=== PATIENT | female | born 1955 | race Caucasian/White ===

== ENCOUNTER 2017-01-24 12:02 | Observation (INO) | payer BC ==
--- NOTE | ~2017-01-24 | HEMODYNAMI ---
PATIENT:DEBBIE HOOKER MEDICAL RECORD: [id number] : 51 LOCATION:[facility] [place] ADMISSION DATE: 01/24/17 Generatedon:01/25/201715:39 Patient name: DEBBIE HOOKER Patient #: [id number] SSN: : 1955 Date of study: 01/25/2017 Page: Of Hemodynamic Procedure Report Patient Data Patient Demographics Procedure consent was obtained First Name: DEBBIE Gender: Female Last Name: MORRO : 1955 [facility] Initial: GABBI Age: 61 year(s) Patient #: [id number] Race: Unknown Additional ID: [id number] Contact details Address: [address] [place] [address] State: [place] City: [place] Zip code: [address] Admission Admission Data Admission Date: 01/24/2017 Admission Time: 14:36 Room #: [facility] Procedure Procedure Types Cath Procedure Diagnostic Procedure LHC LH w/Coronaries PCI Procedure Coronary Stent Initial Miscellaneous Procedures Moderate Sedation up to 45 minutes Procedure Description Procedure Date Procedure Date: 01/25/2017 Procedure Start Time: 15:16 Procedure End Time: 15:38 Procedure Staff Name Function Michi To MD Performing Physician Lupis Morrison RT Scrub Michael Burden RN Nurse Aamir Baeza RT Monitor Sabino Vanegas RT Textile Engraver Procedure Data Cath Procedure Fluoroscopy Diagnostic fluoroscopy Total fluoroscopy Time: 2.9 time: 2.9 min min Diagnostic fluoroscopy Total fluoroscopy dose: 686 dose: 686 mGy mGy Contrast Material Contrast Material Type Amount (ml) Isovue 300 108 Entry Location Entry Primary Successful Side Size Upsize Upsize Entry Closure Succes sful Closure Location (Fr) 1 (Fr) 2 (Fr) Remarks Device Remarks Femoral Right 5 Fr 6 Fr Exoseal artery Short Estimated blood loss: 10 ml Diagnostic catheters Device Type Used For End Catheter Placement Cordis 5Fr JL 4.0 Procedure Catheter (MP) Cordis 5Fr 3DRC Catheter Procedure (MP) Cordis 5Fr Pigtail Procedure Catheter (MP) Procedure Complications No complications Procedure Medications Medication Administration Route Dosage Oxygen NC 2 l/min Heparin Flush Bag added to field 2 bags (1000units/500ml NS) 0.9% NaCl I.V. 100 ml/hr Fentanyl I.V. 50 mcg Versed I.V. 1 mg Fentanyl I.V. 50 mcg Versed I.V. 1 mg Fentanyl I.V. 50 mcg Versed I.V. 1 mg Fentanyl I.V. 50 mcg Versed I.V. 1 mg Fentanyl I.V. 50 mcg Versed I.V. 1 mg Fentanyl I.V. 50 mcg Versed I.V. 1 mg Fentanyl I.V. 50 mcg Versed I.V. 1 mg Heparin Bolus I.V. 9000 units Fentanyl I.V. 50 mcg Versed I.V. 1 mg Plavix P.O. 600 mg Hemodynamics Rest Heart Rate: 83 (bpm) Pressure Samples Time Site Value (mmHg) Purpose Heart Use Rate(bpm) 15:23 LV 168/-12,19 Snapshot 80 15:23 AO 167/78(116) Pullback 73 15:23 LV 160/-14,40 Pullback 73 Gradients Valve Time Site 1 Site 2 Mean SEP/DFP Peak To Heart Use (mmHg) (sec/min) Peak Rate (mmHg) (bpm) Aortic 15:23 LV AO 0 6 0 73 160/-14,40 167/78(116) Calculations Valve P-P Mean Valve Index Valve Source Name Gradient Area Flow (cm2) Aortic 0 0 0 0 Snapshots Pre Cath Intra NCS Post Cath Vital Signs Time Heart Resp SPO2 NIBP (mmHg) Rhythm Pain Sedation Rate (ipm) (%) Status Level (bpm) 15:03:15 81 19 100 152/68(102) NSR 0 (11) 10(A) , No pain 15:07:37 85 18 100 153/69(105) NSR 0 (11) 10(A) , No pain 15:11:55 83 17 100 137/66(95) NSR 0 (11) 10(A) , No pain 15:16:16 89 18 100 137/72(103) NSR 0 (11) 10(A) , No pain 15:20:32 85 19 98 140/77(102) NSR 0 (11) 10(A) , No pain 15:24:52 85 18 99 153/70(95) NSR 0 (11) 10(A) , No pain 15:29:06 88 18 99 143/70(107) NSR 0 (11) 10(A) , No pain 15:33:26 91 17 100 138/74(98) NSR 0 (11) 10(A) , No pain 15:37:44 87 18 100 152/76(111) NSR 0 (11) 10(A) , No pain Medications Time Medication Route Dose Verified Delivered Reason Notes Effectiveness by by 15:09:02 Oxygen NC 2 Michael Michael Per physician l/min Bertram Burden RN RN 15:09:11 Heparin Flush added 2 Michael Michael used for Bag to bags Bertram Burden steward/stewardess second (1000units/500ml field RN NS) 15:09:21 0.9% NaCl I.V. 100 Michael Michael Per physician ml/hr Bertram Burden RN RN 15:10:11 Fentanyl I.V. 50 Michael Michael for sedation mcg Bertram Burden RN RN 15:10:19 Versed I.V. 1 mg Michael Michael for sedation Bertram Burden RN RN 15:12:41 Fentanyl I.V. 50 Michael Michael for sedation mcg Bertram Burden RN RN 15:12:44 Versed I.V. 1 mg Michael Michael for sedation Bertram Burden RN RN 15:14:21 Fentanyl I.V. 50 Michael Michael for sedation mcg Bertram Burden RN RN 15:14:24 Versed I.V. 1 mg Michael Michael for sedation Bertram Burden RN RN 15:16:56 Fentanyl I.V. 50 Michael Michael for sedation mcg Bertram Burden RN RN 15:17:06 Versed I.V. 1 mg Michael Michael for sedation Bertram Burden RN RN 15:18:05 Fentanyl I.V. 50 Imchael Michael for sedation mcg Bertram Burden RN RN 15:18:08 Versed I.V. 1 mg Michael Michael for sedation Bertram Burden RN RN 15:22:22 Fentanyl I.V. 50 Michael Michael for sedation mcg Bertram Burden RN RN 15:23:00 Versed I.V. 1 mg Michael Michael for sedation Bertram Burden RN RN 15:28:10 Fentanyl I.V. 50 Michael Michael for sedation mcg Bertram Burden RN RN 15:28:13 Versed I.V. 1 mg Michael Michael for sedation Bertram Burden RN RN 15:28:42 Heparin Bolus I.V. 9000 Michael Michael for units Bertram Burden RN anticoagulation RN 15:30:55 Fentanyl I.V. 50 Michael Michael for sedation mcg Bertram Burden RN RN 15:30:59 Versed I.V. 1 mg Michael Michael for sedation Bertram Burden RN RN 15:38:12 Plavix P.O. 600 Michael Morochoy for mg Bertram Burden RN antiplatelet RN therapy Procedure Log Time Note 14:30:46 Sabino Vanegas RT(R) sent for patient. Start room use. 14:41:47 Time tracking: Regular hours 14:41:50 Plan of Care:Hemodynamics will remain stable., Cardiac rhythm will remain stable., Comfort level will be maintained., Respiratory function will remain adequate., Patient/ family verbilizes understanding of procedure., Procedure tolerated without complication., Recovers from procedure without complications.. 15:01:18 Patient received from PCU to CCL 2 Alert and oriented. Tansferred to table in Supine position. 15:01:19 Warm blankets applied, and mitch hugger turned on for patient comfort. 15:01:20 Correct patient and procedure confirmed by team. 15:01:21 Signed procedure consent form obtained from patient. 15:01:26 ECG and BP/O2 sat monitors applied to patient. 15:02:05 Vital chart was started 15:02:06 Baseline sample Acquired. 15:02:10 Rhythm: sinus rhythm 15:02:24 Full Disclosure recording started 15:02:53 H&P Date Dictated: 01/24/2017 Within 30 days and on chart.. 15:02:53 Pre-procedure instructions explained to patient. 15:02:54 Pre-op teaching completed and patient verbalized understanding. 15:02:56 Family in patients room. 15:02:57 Patient NPO since Midnight. 15:02:58 Is the patient allergic to Iodine/contrast media? No. 15:03:00 Is patient on blood thinner?No 15:03:08 Patient diabetic? No. 15:03:10 Previous problem with sedation/anesthesia? No ? 15:03:15 Snore? Yes 15:03:16 Sleep apnea? No 15:03:17 Deviated septum? No 15:03:18 Opens mouth fully? Yes 15:03:19 Sticks out tongue? Yes 15:03:21 Airway obstruction? Yes Asthma 15:03:24 Dentures? No ? 15:03:38 Pre procedure: right dorsailis pedis pulse 1+ Palpable, but thready & weak; easily obliterated 15:03:45 Patient pain scale 0/10 ?. 15:03:55 IV patent on arrival in left forearm with 0.9% NaCl at [facility]. 15:04:04 Lab results completed and on chart. 15:04:06 Right groin area was prepped with chlora-prep and draped in sterile fashion 15:04:07 Alarms reviewed by R. N. 15:04:07 Sharps counted by scrub and verified by R.N. 15:04:08 --------ALL STOP TIME OUT------ 15:04:09 Final Timeout: patient, procedure, and site verified with staff and physician. All members of the team are in agreement. 15:04:11 Right groin site verified by team. 15:04:14 Physical assessment completed. ASA score P 2 - A patient with mild systemic disease as per Michi To MD. 15:04:18 Sedation plan: IV Moderate Sedation Versed, Fentanyl 15:09:02 Oxygen 2 l/min NC was administered by Michael Burden RN; Per physician; 15:09:11 Heparin Flush Bag (1000units/500ml NS) 2 bags added to field was administered by Michael Burden RN; used for procedure; 15::21 0.9% NaCl 100 ml/hr I.V. was administered by Michael Burden RN; Per physician; 15::11 Fentanyl 50 mcg I.V. was administered by Michael Burden RN; for sedation; 15::19 Versed 1 mg I.V. was administered by Michael Burden RN; for sedation; 15:12:41 Fentanyl 50 mcg I.V. was administered by Michael Burden RN; for sedation; 15:12:44 Versed 1 mg I.V. was administered by Michael Burden RN; for sedation; 15:14:21 Fentanyl 50 mcg I.V. was administered by Michael Burden RN; for sedation; 15:14:24 Versed 1 mg I.V. was administered by Michael Burden RN; for sedation; 15:16:09 Use device set Femoral Dx 15:16:10 Tegaderm 4 x 4 opened to sterile field. 15:16:11 Acist Hand Control opened to sterile field. 15:16:11 Acist Manifold opened to sterile field. 15:16:12 Acist Syringe opened to sterile field. 15:16:13 Bag Decanter opened to sterile field. 15:16:13 Medline Cath Pack opened to sterile field. 15:16:13 Terumo 5Fr Alpine Sheath opened to sterile field. 15:16:14 St Camacho 260cm J .035 wire opened to sterile field. 15:16:15 Diagnostic Infinity 5Fr Multipack catheter opened to sterile field. 15:16:18 Procedure started. 15:16:21 Local anesthetic to right femoral artery with Lidocaine 2% by Michi To MD.INITIAL ACCESS ONLY 15:16:56 Fentanyl 50 mcg I.V. was administered by Michael Burden RN; for sedation; 15:17:06 Versed 1 mg I.V. was administered by Michael Burden RN; for sedation; 15:17:15 Zero performed for pressure channel P1 15:17:46 A 5 Fr sheath was inserted into the Right Femoral artery 15:18:05 Fentanyl 50 mcg I.V. was administered by Michael Burden RN; for sedation; 15:18:08 Versed 1 mg I.V. was administered by Michael Burden RN; for sedation; 15:19:10 A Cordis 5Fr JL 4.0 Catheter (MP) was advanced over the wire and used for Procedure. 15:19:17 LCA angiography performed. 15:20:31 Catheter exchanged over wire. 15:20:48 A Cordis 5Fr 3DRC Catheter (MP) was advanced over the wire and used for Procedure. 15:21:50 RCA angiography performed. 15:22:22 Fentanyl 50 mcg I.V. was administered by Michael Burden RN; for sedation; 15:22:36 Catheter exchanged over wire. 15:22:41 A Cordis 5Fr Pigtail Catheter (MP) was advanced over the wire and used for Procedure. 15:23:00 Versed 1 mg I.V. was administered by Michael Burden RN; for sedation; 15:23:34 LV angiography performed. 15::35 LV gram done using SARAVIA 15::43 EF : 55 % 15::48 LV hemodynamics recorded. 15::51 Injector settings: Ml/sec: 10, Volume: 20, 15::53 Catheter exchanged over wire. 15:24:16 Terumo 6Fr Alpine Sheath opened to sterile field. 15:24:16 Galo BMW [place] 2 J-tip 300cm 0.014 guide wir opened to sterile field. 15:24:17 Humedica BasixCompak Inflation Kit opened to sterile field. 15:24:17 High Pressure Extension Tubing (To) opened to sterile field. 15:25:28 Cordis 6FR XBLAD 3.5 guide catheter opened to sterile field. 15:25:54 Sheath upsized to a 6 Fr Short. 15:26:03 6 Fr xblad 3.5 guide catheter was inserted over the wire 15:28:10 Fentanyl 50 mcg I.V. was administered by Michael Burden RN; for sedation; 15:28:13 Versed 1 mg I.V. was administered by Michael Burden RN; for sedation; 15:28:42 Heparin Bolus 9000 units I.V. was administered by Michael Burden RN; for anticoagulation; 15:29:15 BMW wire advanced. 15:30:15 Wire advanced across lesion. 15:30:55 Fentanyl 50 mcg I.V. was administered by Michael Burden RN; for sedation; 15:30:59 Versed 1 mg I.V. was administered by Michael Burden RN; for sedation; 15:31:52 Inflation Number: 1 A Orange Leaptronic Integrity 3.0 X 15 stent was prepped and advanced across the Prox LAD. The stent was deployed at 12 TAMERA for 0:10 (min:sec). 15:33:28 Stent catheter was removed intact over wire. 15:33:28 Wire removed. 15:33:28 Guide catheter removed. 15:33:34 Cordis 6Fr Exoseal opened to sterile field. 15:33:40 Sheath removed intact; hemostasis achieved with Exoseal to the Right Femoral artery. 15:34:36 Procedure ended.(Physican Out) 15:35:20 Fluoroscopy time 02.90 minutes. 15:35:24 Fluoroscopy dose: 686 mGy 15:35:24 Flurop Dose total: 686 15:35:27 Contrast amount:Isovue 300 108ml. 15:36:07 Sharps counted by scrub and verified by R.N. 15:36:14 Insertion/operative site no bleeding no hematoma. 15:36:17 Post-op/insertion site Right Femoral artery dressed using a 4 x 4 and Tegaderm. 15:36:21 Post right femoral artery:stable, soft, clean and dry 15:36:24 Post Procedure Pulses reassessed and unchanged 15:36:26 Post-procedure physical assessment completed. ASA score P 2 - A patient with mild systemic disease as per Michi To MD. 15:36:28 Post procedure rhythm: unchanged. 15:36:30 Estimated blood loss: 10 ml 15:36:31 Post procedure instruction explained to patient.Patient verbalizes understanding. 15:36:31 Patient needs reinforcement of post procedure teaching. 15:36:38 Procedure type changed to Cath procedure, Diagnostic procedure, LHC, LHC w/Coronaries, PCI procedure, Coronary Stent Initial, Miscellaneous Procedures, Moderate Sedation up to 45 minutes 15:38:02 Procedure and supply charges have been captured, reviewed, submitted and are correct. 15:38:05 Procedure Complication : No complications 15:38:07 Vital chart was stopped 15:38:08 See physician's report for complete and final results. 15:38:09 Report given to PCU. 15:38:12 Plavix 600 mg P.O. was administered by Michael Burden RN; for antiplatelet therapy; 15:38:27 Patient transfered to PCU with Stretcher. 15:38:30 Procedure ended. 15:38:30 Full Disclosure recording stopped 15:38:58 End room use (Document Last) Intervention Summary Intervention Notes Time ActionType Lesion and Equipment Action# Pressure Duration Attributes Used 15:31:52 Place stent Prox LAD Medtronic 1 12 00:10 Integrity 3.0 X 15 stent Device Usage Item Name Manufacture Quantity Catalog Hospital Part Current Minimal L ot# / Number Charge Number Stock Stock Serial# Code Tegaderm 4 3M 1 1626W [id number] 923269 325648 5 x 4 Acist Hand Acist 1 62867 836140 890232 788119 EyeIC Acist Acist 1 01539 906494 029146 026324 5 Manifold Medical Systems Inc Acist Acist 1 79724 695315 474605 545468 20 Syringe Medical Systems Inc Bag Microtek 1 2002S 886425 53829 534413 5 Decanter Medical Inc. Medline Cardinal 1 [id number] 372962 98846 422795 5 Cath Pack Health Terumo 5Fr Terumo 1 [id number] 846572 673659 262421 [address] St Camacho 1 962688 886165 655942 306883 30 260cm J .035 wire Diagnostic Cardinal 1 ZL5139 047307 63861 595084 30 Infinity Health 5Fr Multipack catheter Cordis 5Fr Cardinal 1 135514 5 JL 4.0 Health Catheter (MP) Cordis 5Fr Cardinal 1 032160 5 3DRC Health Catheter (MP) Cordis 5Fr Cardinal 1 591816 5 Pigtail Health Catheter (MP) Terumo 6Fr Terumo 1 DUR582 368498 720247 348848 40 Alpine Sheath Galo BMW Galo 1 [id number] 591693 369523 174768 5 [place] 2 Vascular J-tip 300cm 0.014 guide wir Merit Merit 1 ED9191 324733 799491 614880 15 BasixCompak Medical Inflation Kit High Merit 1 [id number] 757704 34054 523404 10 Pressure Medical Extension Tubing (To) Cordis 6FR Cardinal 1 [id number] 329469 067293 059654 10 XBLAD 3.5 Health guide catheter Medtronic Medtronic 1 [id number] 849965 550970 1 0 [id number] Integrity 3.0 X 15 stent Cordis 6Fr Cardinal 1 EX600 120239 212668 814145 10 [facility] Advantage Signature Audit Spencer Stage Time Signature Unsigned Intra-Procedure 01/25/2017 Aamir Baeza 3:39:21 PM RT(R) Signatures Monitor : Aamir Baeza RT Signature : Date : Time : [facility] [address] [place] [address]
[2017-01-24 12:47] LABS: BASOPHILS 0.8 % (0-2); EOSINOPHILS 12.7 % (0-7); HEMATOCRIT 40.9 % (36.0-48.0); HEMOGLOBIN 13.5 g/dL (12-16); IMMATURE GRANULOCYTES 0.3 % (0-5); LYMPHOCYTES 25.3 % (15-50); MCH 29.7 pg (26.0-34.0); MCV 90.1 fL (80.0-100.0); MEAN PLATELET VOLUME 10.6 fL (7.4-10.4); MONOCYTES 5.9 % (2-11); PLATELET COUNT 299 10x3/uL (130-400); RBC 4.54 10x6/uL (4.00-5.40); RDW 13.5 % (11.5-14.5); WBC 10.9 10x3/uL (4.8-10.8)
[2017-01-24 13:05] LABS: ALBUMIN 3.6 g/dL (3.4-5.0); ALKALINE PHOSPHATASE 119 U/L (46-116); ALT (SGPT) 34 U/L (10-68); CALC OSMOLALITY 281 mosm/kg (275-300); CALCIUM 9.1 mg/dL (8.5-10.1); CARBON DIOXIDE 26.7 mmol/L (21.0-32.0); CHLORIDE - SERUM 105 mmol/L (98-107); CREATININE - SERUM 0.6 mg/dL (0.6-1.3); GLUCOSE 118 mg/dL (74-106); POTASSIUM - SERUM 4.5 mmol/L (3.5-5.1); PROTEIN - SERUM 6.7 g/dL (6.4-8.2); SODIUM 141 mmol/L (136-145); UREA NITROGEN 12 mg/dL (7-18); eGFR NON AFRICAN AMERICAN > 90 mL/min (90-120)
[2017-01-24 13:17] LABS: CHOL - HDL RATIO 3.2 ratio (2.3-4.1); CHOLESTEROL, TOTAL 192 mg/dL (0-200); CKMB 0.8 U/L (0.0-3.6); CREATINE KINASE 52 UL (21-215); HDL CHOLESTEROL 60 mg/dL (32-96); LDL CHOLESTEROL 108 mg/dL (0-100); LDL-HDL RATIO 1.8 ratio (1.5-3.5); MAGNESIUM - SERUM 1.7 mg/dL (1.8-2.4); TRIGLYCERIDE 124 mg/dL (30-200)
[2017-01-24 13:19] LABS: TROPONIN-I < 0.017 ng/mL (0.000-0.060)
[2017-01-24 15:04] LABS: CREATINE KINASE 50 UL (21-215)
[2017-01-24 15:11] LABS: TROPONIN-I < 0.017 ng/mL (0.000-0.060)
[2017-01-24] MEDS ORDERED: SINGULAIR10 MG PO (15:38)
[2017-01-24] MEDS ORDERED: BUPROPION HCL100 M1 PO (15:38)
[2017-01-24] MEDS ORDERED: LEVO-T50 MCG PO (15:39)
[2017-01-24] MEDS ORDERED: ESTRACE 0.5 MG0.5 MG PO (15:40)
[2017-01-24] MEDS ORDERED: OMEPRAZOLE40 MG PO (15:42)
[2017-01-24] MEDS ORDERED: CYCLOBENZAPRINE10 MG PO (15:42)
[2017-01-24] MEDS ORDERED: PROBIOTIC1 EAC1 PO (15:43)
[2017-01-24] MEDS ORDERED: VENTOLIN HFA18 GM INH (15:43)
[2017-01-24 16:00] VITALS: BP 138/55
[2017-01-24 16:33] LABS: APPEARANCE HAZY (CLEAR); BILIRUBIN NEGATIVE (NEGATIVE); COLOR YELLOW (YELLOW); GLUCOSE NEGATIVE (NEGATIVE); KETONE NEGATIVE (NEGATIVE); LEUKOCYTE ESTERASE 2+ (NEGATIVE); NITRITE NEGATIVE (NEGATIVE); PROTEIN NEGATIVE (NEGATIVE); UROBILINOGEN NORMAL (NORMAL)
[2017-01-24 16:35] LABS: RED CELLS - URINE 0-5 /hpf (0-5)
[2017-01-24 16:36] LABS: BACTERIA MODERATE /hpf (NONE SEEN)
[2017-01-24 20:00] VITALS: BP 118/53
[2017-01-24 21:05] LABS: CKMB 0.7 U/L (0.0-3.6); CREATINE KINASE 44 UL (21-215); TROPONIN-I < 0.017 ng/mL (0.000-0.060)
[2017-01-25] VITALS: BP 127/88
--- NOTE | 2017-01-25 00:29 | NUR ---
MANAGER DIGITAL AT BEDSIDE TO OBTAIN VITALS, CALL LIGHT IN REACH. WILL CONTINUE WITH PLAN OF CARE.
[2017-01-25 03:38] LABS: CKMB 0.4 U/L (0.0-3.6); CREATINE KINASE 37 UL (21-215)
[2017-01-25 03:44] LABS: TROPONIN-I < 0.017 ng/mL (0.000-0.060)
[2017-01-25 04:00] VITALS: BP 116/60
--- NOTE | 2017-01-25 07:50 | NUR ---
AAOX4 RESP UNLABORED DENIES ANY NEEDS OR DISCOMFORT AT THIS TIME
[2017-01-25 08:00] VITALS: BP 120/48
[2017-01-25 09:28] LABS: BASOPHILS 0.9 % (0-2); EOSINOPHILS 14.3 % (0-7); HEMATOCRIT 40.3 % (36.0-48.0); HEMOGLOBIN 12.9 g/dL (12-16); IMMATURE GRANULOCYTES 0.3 % (0-5); LYMPHOCYTES 38.1 % (15-50); MCH 29.5 pg (26.0-34.0); MONOCYTES 6.1 % (2-11); NEUTROPHILS 40.3 % (40-80); PLATELET COUNT 314 10x3/uL (130-400); RBC 4.38 10x6/uL (4.00-5.40); RDW 13.8 % (11.5-14.5)
[2017-01-25 09:44] LABS: CALC OSMOLALITY 283 mosm/kg (275-300); CALCIUM 8.6 mg/dL (8.5-10.1); CARBON DIOXIDE 26.5 mmol/L (21.0-32.0); CHLORIDE - SERUM 105 mmol/L (98-107); CREATININE - SERUM 0.8 mg/dL (0.6-1.3); GLUCOSE 101 mg/dL (74-106); POTASSIUM - SERUM 4.1 mmol/L (3.5-5.1); SODIUM 142 mmol/L (136-145); UREA NITROGEN 16 mg/dL (7-18); eGFR NON AFRICAN AMERICAN 77 mL/min (90-120)
[2017-01-25 11:55] VITALS: BP 124/51
[2017-01-25] MEDS ORDERED: Levaquin PO (17:15)
[2017-01-25] MEDS ORDERED: PROTONIX40 MG PO (17:16)
[2017-01-25] MEDS ORDERED: PLAVIX75 MG PO (17:16)
[2017-01-25] MEDS ORDERED: FLORANEX / LACT1 TAB PO (17:17)
--- NOTE | 2017-01-25 19:51 | NUR ---
RESTING QUIELTY IN BED. DRESSING CLEAN AND DRY. PEDAL PULSES PALPABLE IN RIGHT FOOT. MONITOR SHOW SR @74.
--- NOTE | 2017-01-25 20:24 | NUR ---
AMBULATED AND DRESSED WITHOUT ANY DISTRESS. IV REMOVED WITH TIP INTACT. 2X2 PLACED. SITE CLEAN AND DRY WITHOUT ANY BLEEDING OR EDEMA. DISCHARGE INSTRUCTIONS GIVEN TO PATIENT AND FAMILY. BOTH VOICE UNDERSTANDING.
--- NOTE | 2017-01-25 20:35 | NUR ---
TO CAR VIA .
--- NOTE | 2017-01-27 09:58 | CN ---
PATIENT NAME:DEBBIE HOOKER MEDICAL RECORD: [id number] : 51 LOCATION:. D.2117 ADMIT DATE: 01/24/17 ACCOUNT: [id number] CONSULTING PHYSICIAN: YU BLACKMAN M.D. REFERRING PHYSICIAN: YU AUGUSTE MD DATE OF CONSULTATION: REFERRING PHYSICIAN: Christo Bruno MD. REASON FOR CONSULTATION: Chest pain and palpitations. HISTORY OF PRESENT ILLNESS: Patient is a 61-year-old female patient who was admitted to the Emergency Department after an episode of chest discomfort she describes as a chest heaviness that radiated downward with some associated nausea and diaphoresis. Her blood pressure was elevated at the time. States she had a 2-day episode of palpitations prior to this. Her past medical history revealed some hyperlipidemia. She does have a known family history of a heart disease. She also has some mild aortic and mitral regurgitation. Her 12-lead EKG showed a normal sinus rhythm without any acute ischemic changes. Her cardiac enzymes are negative. Due to the acute onset of her symptomatology, we will proceed with a diagnostic left heart cath. Her last angiogram was in 2010. PAST MEDICAL HISTORY: As per HPI. MEDICATIONS: Includes: 1. Wellbutrin. 2. Singulair. 3. Levothyroxine. 4. Estradiol. 5. Omeprazole. 6. Flexeril. 7. Ventolin inhaler p.r.n. REVIEW OF SYSTEMS: As per HPI. PHYSICAL EXAMINATION: GENERAL SURVEY: Reveals a well-developed, well-nourished female in no distress at the time of the exam. VITAL SIGNS: Stable. HEENT: Head is normocephalic. Pupils are equal and reactive to light and accommodation. Extraocular muscles are intact. Mucous membranes are pink and moist. NECK: Supple. Trachea is midline. There is no JVD or carotid bruits. CARDIOVASCULAR: Reveals a regular rate and rhythm without murmur, gallop or rub. LUNGS: Clear and equal bilaterally. ABDOMEN: Soft, nontender. Bowel sounds are positive. EXTREMITIES: She has no clubbing, cyanosis or edema. NEUROLOGIC: Cranial nerves II through XII are grossly intact. ASSESSMENT AND PLAN: 1. Chest pain. 2. Urinary tract infection. 3. Palpitations. 4. Family history of heart disease. CONSULT REPORT [id number] DEBBIE HOOKER The plan is to proceed with a diagnostic left heart catheterization to rule out coronary artery disease. If the patient's heart catheterization reveals normal coronaries, we would proceed with an event monitor to rule out arrhythmias. TRANSINT:[id number] Voice Confirmation ID: [id number] DOCUMENT ID: [id number] Dictated By: ED MEDEROS I have interviewed/examined the above patient and agree with these documented findings. YU BLACKMAN M.D. at 0958 CC: [id number] DICTATION DATE: 01/25/17905 WELL SERVICE DERRICK WORKER: 01/25/17 1014 DIS IN 01/25/17 [facility] [address] [place] [address]
== END 2017-01-25 20:35 | disposition home or self-care (01) ==
LOC: D.ER 12:02 → D.M2 14:36 → OBSVTIME 14:36 → D.M2 01-25 20:35
PROVIDERS: Emergency Medicine; Internal Medicine Cardiovascular Disease; ADMIT Family Medicine
DX: I25.10 Atherosclerotic heart disease of native coronary artery without angina pectoris (principal); R00.2 Palpitations; N39.0 Urinary tract infection, site not specified; I08.0 Rheumatic disorders of both mitral and aortic valves

== ENCOUNTER 2017-10-24 15:06 | Observation (INO) | payer BC ==
[~2017-10-24] VITALS: Ht 165.1 cm; Wt 92.2 kg
--- NOTE | ~2017-10-24 | OP ---
PATIENT NAME: DEBBIE HOOKER MEDICAL RECORD: [id number] :51 LOCATION:D.M2 D.2115 ADMISSION DATE:10/24/17 SURGEON: ODELL MONTIEL MD DATE OF OPERATION: 10/25/2017 PROCEDURE: Left heart catheterization, selective coronary angiography, right femoral artery approach. CATHETERS: A 5-Emirati sheath, 5/4 left and right Queenie, 5/4 pig. The procedure was well tolerated. The patient was returned to kumar. Sheath removed. Proceeded immediately to stenting the LAD. FINDINGS: Left ventriculography in 30-degree SARAVIA view: Normal wall motion. Normal systolic function. CORONARY ANATOMY. LEFT MAIN: Left main is free of disease. LAD: Has diffuse in-stent restenosis of about 80%. CIRCUMFLEX: Circumflex is free of disease. RIGHT CORONARY ARTERY: Has about a 50% stenosis in mid portion. IMPRESSION: Restenosis of LAD stent. PLAN: Intervention of this vessel momentarily. DESCRIPTION OF PROCEDURE: A 5-Emirati sheath was exchanged for a 6-Emirati sheath. XB LAD guiding catheter provided good guide catheter support followed by 300 cm Whisper wire was placed across the tightly occluded LAD down this portion of this vessel. Stent deployed was a 3.0 x 18 mm Inchelium drug-eluting stent up to 14 atmospheres. Final injection shows excellent resolution of 80% diffuse restenosis. No significant residual. MANUELA flow was 3 throughout the procedure. Integrilin was used during the case. Sheath was closed with ExoSeal device. TRANSINT:[id number] Voice Confirmation ID: [id number] DOCUMENT ID: [id number] ODELL MONTIEL MD at 1001 CC: [id number] DICTATION DATE: 10/25/17 1551 FOOD SERVICES DIRECTOR: 10/25/17 1809 DIS IN 10/25/17 [facility] [address] [place] [address]
--- NOTE | ~2017-10-24 | HP ---
PATIENT: DEBBIE HOOKER MEDICAL RECORD: [id number] ACCOUNT: [id number] LOCATION:[address] : 51 ADMISSION DATE: 10/24/17 HISTORY AND PHYSICAL EXAMINATION REASON FOR ADMISSION: Chest pain. HISTORY OF PRESENT ILLNESS: The patient says, on 10/19/2017, she developed substernal pain radiating into her back. She took a nitroglycerin on 10/20 for persistent chest pain that did help. She spoke with her raw finish mill operator by phone and he felt she said it was noncardiac. She takes Prilosec 40 mg a day and Zantac at bedtime for dyspepsia. She has a LAD stent, Integrity, for 80+ percent stenosis on 01/25/2017. She had a 20% RCA lesion that is being treated medically. She has history of asthma and used her inhaler without improvement. She did not have any asthma symptoms. She was seen in the office today, still having some discomfort, was given 325 mg aspirin, admitted to the hospital for further evaluation. Her EKG at this time does not show any acute changes. PAST MEDICAL HISTORY: LAD stenosis with stent and PTCA in January 2017 and 20% stenosis of the RCA; history of cataracts; hypothyroidism; mild aortic and mitral regurgitation; CAD, post PTCA of LAD in 2016; known history of asthma; GERD. SURGICAL HISTORY: Cholecystectomy. She has had knee and back surgery, hernia repair, , hysterectomy, breast biopsy, Manuel fundoplication, and PTCA. ALLERGIES: SULFA CAUSING SEVERE ANAPHYLACTIC REACTION. FAMILY HISTORY: Parents with cardiovascular disease, siblibing with cardiovascular disease and cancer. SOCIAL HISTORY: She has never smoked. She uses some alcohol, not heavily. She does not use recreational drug use. CURRENT MEDICATIONS: Aspirin 325 mg p.o. stat, omeprazole 40 mg a day, Breo Ellipta 100/25 one puff daily, cyclobenzaprine 10 mg at bedtime p.r.n. muscle spasm, Singulair 10 mg with evening meal, ranitidine 150 mg p.o. at bedtime, nitroglycerin 0.4 sublingual p.r.n. chest pain, Wellbutrin SR 100 mg p.o. daily, diclofenac 1% topical gel to joint q.i.d., probiotic 3 billion cell capsule one p.o. daily, biotin 10,000 mcg capsule daily, Ventolin HFA one puff q. 4-6 hours p.r.n. rescue for wheezing, Lasix 20 mg p.o. q.a.m. p.r.n. swelling, levothyroxine 50 mcg p.o. q.a.m., pravastatin 20 mg with evening meal. REVIEW OF SYSTEMS: GENERAL: She has had mild fatigue. No fever. HEENT: No recent visual change, sinus congestion, or sore throat. RESPIRATORY: She has had minimal cough. No exertional wheezing or hemoptysis. CARDIAC: Substernal chest pain, radiating into her back, relieved by nitroglycerin. As mentioned, it has been fairly dull through the weekend. No claudication or edema. : No dysuria or incontinence. LEATHER CRAFTER: No vaginal bleeding. ENDOCRINE: Denies polyuria, polydipsia, heat or cold intolerance. NEURO: No history of stroke, TIA, or vascular headaches. INTEGUMENT: No rash or itching. HISTORY AND PHYSICAL [id number] DEBBIE HOOKER PSYCH: Denies depressed mood. PHYSICAL EXAMINATION: GENERAL: Alert 62-year-old female, at this time appears in minimal distress. VITAL SIGNS: Show height of 5 feet 5 inches, weight 204 pounds, BMI 33.9. Blood pressure is 122/80, heart rate is 90 and regular, O2 sat is 96% on room air. HEENT: Normocephalic. Eyes are clear. NECK: No bruits or masses. CHEST: No wheeze or rales. HEART: Regular rate without MGR. PMI appropriate. No sternal pain is noted on palpation. ABDOMEN: Soft and nontender. PELVIC: Deferred. RECTAL: Deferred. EXTREMITIES: No CC&E. NEUROLOGIC: Grossly intact. EKG shows sinus rhythm without acute changes. ASSESSMENT: 1. Substernal chest pain, relieved by nitroglycerin. 2. History of CAD, post LAD PTCA in 2017 with 20% RCA residual. 3. Hyperlipidemia. 4. Asthma. 5. History of GERD. PLAN: The patient will be admitted to observation for serial cardiac enzymes, cardiac monitoring, and potential cardiac intervention. TRANSINT:[id number] Voice Confirmation ID: [id number] DOCUMENT ID: [id number] YU AUGUSTE MD at 0644 CC: [id number] DICTATION DATE: 10/24/17 1724 DIRECT MAIL CLERK: 10/24/171912 DIS IN 10/25/17 [facility] [address] [id number]
--- NOTE | ~2017-10-24 | HEMODYNAMI ---
PATIENT:DEBBIE HOOKER MEDICAL RECORD: [id number] : 51 LOCATION:[facility].2115 ADMISSION DATE: 10/24/17 Generatedon:10/25/201715:51 Patient name: DEBBIE HOOKER Patient #: [id number] SSN: : 1955 Date of study: 10/25/2017 Page: Of Hemodynamic Procedure Report Patient Data Patient Demographics Procedure consent was obtained First Name: DEBBIE Gender: Female Last Name: MORRO : 1955 [facility] Initial: GABBI Age: 62 year(s) Patient #: [id number] Race: Unknown Additional ID: [id number] Contact details [address]: [address] [place] [address] State: [place] City: [place] Zip code: [address] Admission Admission Data Admission Date: 10/24/2017 Admission Time: 17:11 Room #: D.2115 Lab Results Lab Result Date: 10/25/2017 Lab Result Time: 0:00 Biochemistry Name Units Result Min Max BUN mg/dl 14 --(--*-)-- 7 18 Creatinine mg/dl 0.8 --(-*--)-- 0.6 1.3 CBC Name Units Result Min Max Hemoglobin g/dl 13.8 --(*---)-- 13.5 17.5 Procedure Procedure Types Cath Procedure Diagnostic Procedure [facility] w/Coronaries PCI Procedure Coronary Stent Coronary Stent Initial Procedure Description Procedure Date Procedure Date: 10/25/2017 Procedure Start Time: 15:30 Procedure End Time: 15:48 Procedure Staff Name Function Messi Spann MD Performing Physician Sabino Vanegas RT Monitor Iggy Dumont RN Nurse Anais Johnson RT Scrub Carlitos Ott RT Warp Placer Procedure Data Cath Procedure Fluoroscopy Diagnostic fluoroscopy Total fluoroscopy Time: 2.8 time: 2.8 min min Diagnostic fluoroscopy Total fluoroscopy dose: 564 dose: 564 mGy mGy Contrast Material Contrast Material Type Amount (ml) Isovue 300 83 Entry Location Entry Primary Successful Side Size Upsize Upsize Entry Closure Succes sful Closure Location (Fr) 1 (Fr) 2 (Fr) Remarks Device Remarks Femoral Right 5 Fr 6 Fr Exoseal artery Short Estimated blood loss: 10 ml Diagnostic catheters Device Type Used For End Catheter Placement MULTIPACK JL 4.0 5Fr Procedure catheter MULTIPACK 3DRC 5Fr Procedure catheter MULTIPACK Pigtail 5 Fr Procedure catheter Procedure Complications No complications Procedure Medications Medication Administration Route Dosage 0.9% NaCl I.V. 100 ml/hr Oxygen etCO2 Nasal cannula 2 l/min Heparin Flush Bag added to field 2 bags (1000units/500ml NS) Lidocaine 2% added to field 20 Versed I.V. 2 mg Fentanyl I.V. 100 mcg Fentanyl I.V. 50 mcg Heparin Bolus I.V. 5000 units Integrilin (Bolus I.V. 8.5 ml 2mg/ml) Integrilin (Bolus wasted 1.5 ml 2mg/ml) Fentanyl I.V. 50 mcg Plavix P.O. 600 mg Hemodynamics Rest HGB: 13.8 (g/dl) Heart Rate: 78 (bpm) Pressure Samples Time Site Value (mmHg) Purpose Heart Use Rate(bpm) 15:37 LV 192/10,18 Snapshot 90 15:38 AO 184/93(134) Pullback 88 15:38 LV 181/17,19 Pullback 88 15:43 AO 147/85(113) Snapshot 92 Gradients Valve Time Site 1 Site 2 Mean SEP/DFP Peak To Heart Use (mmHg) (sec/min) Peak Rate (mmHg) (bpm) Aortic 15:38 LV AO 0 88 181/17,19 184/93(134) Calculations Valve P-P Mean Valve Index Valve Source Name Gradient Area Flow (cm2) Aortic 0 0 Snapshots Pre Cath Intra NCS Post Cath Vital Signs Time Heart Resp SPO2 etCO2 NIBP (mmHg) Rhythm Pain Sedation Rate (ipm) (%) (mmHg) Status Level (bpm) 15:29:21 78 19 100 46.4 165/86(115) NSR 0 (11) 10(A) , No pain 15:34:04 81 19 100 44.2 157/87(113) NSR 0 (11) 10(A) , No pain 15:38:49 90 17 100 44.9 160/85(115) NSR 0 (11) 10(A) , No pain 15:43:31 87 18 100 47.1 166/83(119) NSR 0 (11) 10(A) , No pain 15:48:18 91 16 100 42.7 176/89(136) NSR 0 (11) 10(A) , No pain Medications Time Medication Route Dose Verified Delivered Reason Notes Effectiveness by by 15:27:51 0.9% NaCl I.V. 100 Iggy Iggy Per physician ml/hr Tim Dumont RN RN 15:28:00 Oxygen etCO2 2 Iggy Iggy Per physician Nasal l/min Tim Dumont cannula RN RN 15:28:11 Heparin Flush added 2 Iggy Iggy used for Bag to bags Lorlaquita Dumont procedure (1000units/500ml field RN RN NS) 15:28:22 Lidocaine 2% added 20ml Iggy Iggy for local to vial Lorigan Tim anesthetic RN RN 15:30:50 Versed I.V. 2 mg Iggy Iggy for sedation Tim Dumont RN RN 15:31:21 Fentanyl I.V. 100 Iggy Iggy for sedation mcg Tim Dumont RN RN 15:32:57 Fentanyl I.V. 50 Iggy Iggy for sedation mcg Tim Dumont RN RN 15:40:45 Heparin Bolus I.V. 5000 Iggy Iggy for units Tim Dumont anticoagulation RN RN 15:41:04 Integrilin I.V. 8.5 Iggy Iggy for (Bolus 2mg/ml) ml Tim Dumont antiplatelet RN RN therapy 15:41:16 Integrilin wasted 1.5 Iggy Iggy to sharp's (Bolus 2mg/ml) ml Tim Dumont RN RN 15:41:44 Fentanyl I.V. 50 Iggy Iggy for sedation mcg Tim Dumont RN RN 15:48:23 Plavix P.O. 600 Iggy Iggy for mg Lorlaquita Dumont antiplatelet RN RN therapy Procedure Log Time Note 15:00:46 Carlitos FERNÁNDEZ(R) (CV) sent for patient. Start room use. 15:06:47 Time tracking: Regular hours (M-F 7:00 - 5:00) 15:06:51 Plan of Care:Hemodynamics will remain stable., Cardiac rhythm will remain stable., Comfort level will be maintained., Respiratory function will remain adequate., Patient/ family verbilizes understanding of procedure., Procedure tolerated without complication., Recovers from procedure without complications.. 15:16:15 Signed procedure consent form obtained from patient. 15:16:20 H&P Date Dictated: 10/24/2017 Within 30 days and on chart.. 15:16:55 Lab Result : BUN 14 mg/dl 15:16:55 Lab Result : Hemoglobin 13.8 g/dl 15:16:55 Lab Result : Creatinine 0.8 mg/dl 15:17:27 Patient received from Med II to CCL 1 Alert and oriented. Tansferred to table in Supine position. 15:17:28 Warm blankets applied, and mitch hugger turned on for patient comfort. 15:17:28 Correct patient and procedure confirmed by team. 15:17:29 ECG and BP/O2 sat monitors applied to patient. 15:27:48 Baseline sample Acquired. 15:27:51 0.9% NaCl 100 ml/hr I.V. was administered by Iggy Dumont RN; Per physician; 15:27:51 Rhythm: sinus rhythm 15:27:52 Full Disclosure recording started 15:27:53 Pre-procedure instructions explained to patient. 15:27:54 Pre-op teaching completed and patient verbalized understanding. 15:27:58 Family in waiting room. 15:27:59 Patient NPO since Midnight. 15:28:00 Oxygen 2 l/min etCO2 Nasal cannula was administered by Iggy Dumont RN; Per physician; 15:28:03 Is the patient allergic to Iodine/contrast media? No. 15:28:07 Is patient on blood thinner?No 15:28:09 Patient diabetic? No. 15:28:11 Heparin Flush Bag (1000units/500ml NS) 2 bags added to field was administered by Iggy Dumont RN; used for procedure; 15:28:11 Previous problem with sedation/anesthesia? No ? 15:28:12 Snore? Yes 15:28:13 Sleep apnea? No 15:28:14 Deviated septum? No 15:28:15 Opens mouth fully? Yes 15:28:16 Sticks out tongue? Yes 15:28:20 Airway obstruction? Yes Asthma 15:28:22 Lidocaine 2% 20ml vial added to field was administered by Iggy Dumont RN; for local anesthetic; 15:28:23 Dentures? No ? 15:28:26 Pre procedure: right dorsailis pedis pulse 1+ Palpable, but thready & weak; easily obliterated 15:28:27 Vital chart was started 15:28:29 Patient pain scale 0/10 ?. 15:28:35 IV patent on arrival in right forearm with 0.9% NaCl at [facility]. 15::38 Lab results completed and on chart. 15::41 Right groin area was prepped with chlora-prep and draped in sterile fashion 15::42 Alarms reviewed by R. N. 15:: Sharps counted by scrub and verified by R.N. 15::44 --------ALL STOP TIME OUT------ ::44 Final Timeout: patient, procedure, and site verified with staff and physician. All members of the team are in agreement. 15::47 Right groin site verified by team. 15::49 Physical assessment completed. ASA score P 2 - A patient with mild systemic disease as per Messi Spann MD. 15::52 Sedation plan: IV Moderate Sedation Medication:Versed, Fentanyl 15::41 Procedure started. 15::44 Local anesthetic to right femoral artery with Lidocaine 2% by Messi Spann MD.INITIAL ACCESS ONLY 15:30:50 Versed 2 mg I.V. was administered by Iggy Dumont RN; for sedation; 15:31:21 Fentanyl 100 mcg I.V. was administered by Iggy Dumont RN; for sedation; 15:32:57 Fentanyl 50 mcg I.V. was administered by Iggy Dumont RN; for sedation; 15:34:22 A 5 Fr sheath was inserted into the Right Femoral artery 15:34:34 Use device set Femoral Dx 15:34:36 Tegaderm 4 x 4 (1626W) opened to sterile field. 15:34:37 PERCUTANEOUS ENTRY 19GA needle opened to sterile field. 15:34:38 ACIST Manifold (91512) opened to sterile field. 15:34:39 ACIST Hand Control (08903) opened to sterile field. 15:34:40 ACIST Syringe (45799) opened to sterile field. 15:34:40 Bag Decanter () opened to sterile field. 15:34:41 Medline Cath Pack ([id number]) opened to sterile field. 15:34:41 DIAGNOSTIC WIRE .035 260cm J wire (361932) opened to sterile field. 15:34:44 DIAGNOSTIC Multipack 5Fr catheter set (AS7414) opened to sterile field. 15:34:45 SHEATH Prelude 5Fr 0.035 (LWE-3P-84-035) opened to sterile field. 15:35:07 A MULTIPACK JL 4.0 5Fr catheter was advanced over the wire and used for Procedure. 15:35:17 LCA angiography performed. 15:35:28 Catheter removed. 15:35:37 A MULTIPACK 3DRC 5Fr catheter was advanced over the wire and used for Procedure. 15:35:41 Use device set [place] PCI 15:35:55 SHEATH Prelude 6Fr 0.035 (CIY-0K-90-035) opened to sterile field. 15:36:05 WHISPER 300cm guide wire ([id number]) opened to sterile field. 15:36:07 INFLATOR Merit BasixCompak (WW9290) opened to sterile field. 15:37:06 RCA angiography performed. 15:37:09 Catheter removed. 15:37:14 A MULTIPACK Pigtail 5 Fr catheter was advanced over the wire and used for Procedure. 15:38:03 LV angiography performed. 15:38:37 EF : 50 % 15:38:44 LV hemodynamics recorded. 15:38:48 Injector settings: Ml/sec: 10, Volume: 20, 15:38:51 Catheter removed. 15:39:13 Sheath upsized to a 6 Fr Short. 15:39:40 GUIDE 6FR XBLAD 3.5 catheter ([id number]) opened to sterile field. 15:39:49 6 Fr XBLAD 3.5 guide catheter was inserted over the wire 15:40:45 Heparin Bolus 5000 units I.V. was administered by Iggy Dumont RN; for anticoagulation; 15:41:04 Integrilin (Bolus 2mg/ml) 8.5 ml I.V. was administered by Iggy Dumont RN; for antiplatelet therapy; 15:41:16 Integrilin (Bolus 2mg/ml) 1.5 ml wasted was administered by Iggy Dumont RN; to sharp's; 15:41:44 Fentanyl 50 mcg I.V. was administered by Iggy Dumont RN; for sedation; 15:42:05 Whisper wire advanced. 15:43:06 Wire advanced across lesion. 15:44:15 Place stent Inflation Number: 1 A JENNIFER OTW 3.0 x 18 stent ([id number]) was prepped and advanced across the Prox LAD. The stent was deployed at 16 TAMERA for 0:10 (min:sec). 15:44:36 Stent catheter was removed intact over wire. 15:44:37 Wire removed. 15:44:38 Guide catheter removed. 15:44:42 EXOSEAL 6Fr (EX600) opened to sterile field. 15:45:14 Sheath removed intact; hemostasis achieved with Exoseal to the Right Femoral artery. 15:45:16 Procedure ended.(Physican Out) 15:45:53 Fluoroscopy time 02.80 minutes. 15:45:57 Flurop Dose total: 564 15:45:57 Fluoroscopy dose: 564 mGy 15:46:01 Contrast amount:Isovue 300 83ml. 15:47:02 Sharps counted by scrub and verified by R.N. 15:47:04 Insertion/operative site no bleeding no hematoma. 15:47:08 Post-op/insertion site Right Femoral artery dressed using a 4 x 4 and Tegaderm. 15:47:09 Post Procedure Pulses reassessed and unchanged 15:47:11 Post-procedure physical assessment completed. ASA score P 2 - A patient with mild systemic disease as per Messi Spann MD. 15:47:15 Post procedure rhythm: unchanged. 15:47:18 Estimated blood loss: 10 ml 15:47:20 Post procedure instruction explained to patient.Patient verbalizes understanding. 15:47:20 Patient needs reinforcement of post procedure teaching. 15:47:29 Procedure type changed to Cath procedure, Diagnostic procedure, LHC, LHC w/Coronaries, PCI procedure, Coronary Stent, Coronary Stent Initial 15:47:31 Procedure and supply charges have been captured, reviewed, submitted and are correct. 15:47:34 Procedure Complication : No complications 15:48:23 Plavix 600 mg P.O. was administered by Iggy Dumont RN; for antiplatelet therapy; 15:48:26 Vital chart was stopped 15:48:26 See physician's report for complete and final results. 15:48:28 Report given to PCU. 15:48:33 Patient transfered to PCU with Bed. 15:48:44 Procedure ended. 15:48:44 Full Disclosure recording stopped 15:51:14 End room use (Document Last) Intervention Summary Intervention Notes Time ActionType Lesion and Equipment Action# Pressure Duration Attributes Used 15:44:15 Place stent Prox LAD JENNIFER OTW 3.0 1 16 00:10 x 18 stent ([id number]) Device Usage Item Name Manufacture Quantity Catalog Number Hospital Part Current Minimal Lot# / Charge Number Stock Stock Serial# Code Tegaderm 4 x 4 3M 1 [id number] [id number] 306884 5 (1626W) PERCUTANEOUS Cook Medical 1 [id number] 614753 715415 5 ENTRY 19GA needle ACIST Manifold Acist 1 66293 995143 267918 091903 5 (44251) Medical Systems Inc ACIST Hand Acist 1 76857 275267 062919 720502 5 Control (14338) Medical Systems Inc ACIST Syringe Acist 1 55119 232951 653251 631648 20 (13257) Medical Systems Inc Bag Decanter Microtek 1 2001S 182939 79522 561410 5 (2001S) Medical Inc. Medline Cath Cardinal 1 [id number] 020959 07929 966180 5 Mature [employer] Solutions ([id number]) DIAGNOSTIC WIRE [facility] [place] 1 652168 344530 938079 167392 30 .035 260cm J wire (511882) DIAGNOSTIC Cardinal 1 FT8033 916071 66730 572121 30 Multipack 5Fr Health catheter set (WU4291) SHEATH Prelude Merit 1 KJZ-5Z-86-035 859683 640537 555384 5 5Fr 0.035 Medical (CZB-3O-81-035) MULTIPACK JL Cardinal 1 [id number] 5 4.0 5Fr Health catheter MULTIPACK 3DRC Cardinal 1 129956 5 5Fr catheter Health SHEATH Prelude Merit 1 SBL-9S-32-35 321165 1659411 431671 5 6Fr 0.035 Medical (MCL-5F-29-035) WHISPER 300cm Galo 1 [id number] 715576 460194 547144 5 guide wire Vascular ([id number]) INFLATOR Merit Merit 1 KK7002 091022 068306 123956 15 [employer] Medical (XN8476) MULTIPACK Cardinal 1 452840 5 Pigtail 5 Fr Health catheter GUIDE 6FR XBLAD Cardinal 1 [id number] 407258 536160 232923 10 3.5 catheter Health (70953555) JENNIFER OTW 3.0 x Medtronic 1 [id number] 348657 7895613 960998 5 [id number] 18 stent ([id number]) EXOSEAL 6Fr Cardinal 1 EX600 504197 348833 618610 10 (EX600) Health Signature Audit [facility] Time Signature Unsigned Intra-Procedure 10/25/2017 Sabino Vanegas 3:51:27 PM RT(R) Signatures Monitor : Sabino Vanegas RT Signature : Date : Time : [address] [address]
[~2017-10-24 15:06] MED LIST: BUPROPION HCL100 M1 PO; CYCLOBENZAPRINE10 MG PO; ESTRACE 0.5 MG0.5 MG PO; FLORANEX / LACT1 TAB PO; LEVO-T50 MCG PO; Levaquin PO; OMEPRAZOLE40 MG PO; PLAVIX75 MG PO; PROBIOTIC1 EAC1 PO; PROTONIX40 MG PO; SINGULAIR10 MG PO; VENTOLIN HFA18 GM INH
[2017-10-24 15:56] LABS: BASOPHILS 0.4 % (0-2); HEMATOCRIT 41.9 % (36.0-48.0); HEMOGLOBIN 13.8 g/dL (12-16); IMMATURE GRANULOCYTES 0.3 % (0-5); LYMPHOCYTES 35.1 % (15-50); MCH 29.1 pg (26.0-34.0); MCHC 32.9 g/dL (31.0-37.0); MCV 88.4 fL (80.0-100.0); MEAN PLATELET VOLUME 11.1 fL (7.4-10.4); MONOCYTES 6.1 % (2-11); NEUTROPHILS 54.1 % (40-80); PLATELET COUNT 327 10x3/uL (130-400); RBC 4.74 10x6/uL (4.00-5.40); RDW 13.2 % (11.5-14.5); WBC 9.8 10x3/uL (4.8-10.8)
[2017-10-24 16:20] LABS: ALBUMIN 4.2 g/dL (3.4-5.0); ALKALINE PHOSPHATASE 112 U/L (46-116); ALT (SGPT) 34 U/L (10-68); BILIRUBIN - TOTAL 0.25 mg/dL (0.2-1.3); CALC OSMOLALITY 278 mosm/kg (275-300); CALCIUM 9.3 mg/dL (8.5-10.1); CARBON DIOXIDE 26.6 mmol/L (21.0-32.0); CHLORIDE - SERUM 104 mmol/L (98-107); CREATININE - SERUM 0.8 mg/dL (0.6-1.3); GLUCOSE 86 mg/dL (74-106); PROTEIN - SERUM 7.6 g/dL (6.4-8.2); SODIUM 140 mmol/L (136-145); UREA NITROGEN 14 mg/dL (7-18); eGFR NON AFRICAN AMERICAN 76 mL/min (90-120)
[2017-10-24 16:41] LABS: CHOLESTEROL, TOTAL 214 mg/dL (0-200); CKMB 0.4 U/L (0.0-3.6); CREATINE KINASE 44 UL (21-215); HDL CHOLESTEROL 53 mg/dL (32-96); LDL CHOLESTEROL 118 mg/dL (0-100); LDL-HDL RATIO 2.2 ratio (1.5-3.5); TRIGLYCERIDE 216 mg/dL (30-200)
[2017-10-24 16:44] LABS: TROPONIN-I < 0.017 ng/mL (0.000-0.060)
[2017-10-24] MEDS ORDERED: OMEPRAZOLE40 MG PO (17:51)
[2017-10-24] MEDS ORDERED: BREO ELLIPTA 11 EACH INH (17:52)
[2017-10-24] MEDS ORDERED: BAYER CHEWABLE81 MG PO (17:53)
[2017-10-24] MEDS ORDERED: CLARITIN 10 MG10 MG PO (17:53)
[2017-10-24 17:57] VITALS: BP 168/80; Ht 165.1 cm; Wt 92.2 kg
[2017-10-24 19:00] VITALS: BP 139/74
[2017-10-24 20:49] LABS: CKMB 0.3 U/L (0.0-3.6); CREATINE KINASE 40 UL (21-215)
[2017-10-24 20:51] LABS: TROPONIN-I < 0.017 ng/mL (0.000-0.060)
[2017-10-25 04:00] VITALS: BP 118/68
[2017-10-25 06:23] LABS: CHOL - HDL RATIO 4.4 ratio (2.3-4.1); CHOLESTEROL, TOTAL 189 mg/dL (0-200); CKMB 0.1 U/L (0.0-3.6); HDL CHOLESTEROL 43 mg/dL (32-96); LDL CHOLESTEROL 92 mg/dL (0-100); LDL-HDL RATIO 2.1 ratio (1.5-3.5); TRIGLYCERIDE 273 mg/dL (30-200)
[2017-10-25 06:24] LABS: TROPONIN-I < 0.017 ng/mL (0.000-0.060)
[2017-10-25 08:08] LABS: BASOPHILS 0.6 % (0-2); EOSINOPHILS 5.6 % (0-7); HEMATOCRIT 39.3 % (36.0-48.0); HEMOGLOBIN 12.7 g/dL (12-16); IMMATURE GRANULOCYTES 0.2 % (0-5); LYMPHOCYTES 47.3 % (15-50); MCH 28.7 pg (26.0-34.0); MCHC 32.3 g/dL (31.0-37.0); MCV 88.9 fL (80.0-100.0); MEAN PLATELET VOLUME 11.6 fL (7.4-10.4); MONOCYTES 6.9 % (2-11); NEUTROPHILS 39.4 % (40-80); PLATELET COUNT 302 10x3/uL (130-400); RBC 4.42 10x6/uL (4.00-5.40); RDW 13.2 % (11.5-14.5); WBC 8.1 10x3/uL (4.8-10.8)
[2017-10-25 08:18] LABS: CALC OSMOLALITY 286 mosm/kg (275-300); CALCIUM 9.2 mg/dL (8.5-10.1); CHLORIDE - SERUM 106 mmol/L (98-107); CREATININE - SERUM 0.8 mg/dL (0.6-1.3); GLUCOSE 109 mg/dL (74-106); POTASSIUM - SERUM 3.7 mmol/L (3.5-5.1); SODIUM 143 mmol/L (136-145); UREA NITROGEN 16 mg/dL (7-18); eGFR NON AFRICAN AMERICAN 76 mL/min (90-120)
[2017-10-25 08:19] LABS: CARBON DIOXIDE 19.5 mmol/L (21.0-32.0)
[2017-10-25 11:58] VITALS: BP 145/75
[2017-10-25] MEDS ORDERED: PLAVIX75 MG PO (18:36)
[2017-10-25] MEDS ORDERED: PROTONIX20 MG PO (18:36)
== END 2017-10-25 20:35 | disposition home or self-care (01) ==
LOC: D.ER 15:06 → D.M2 17:11 → OBSVTIME 17:12 → D.M2 10-25 20:35
PROVIDERS: Emergency Medicine; Family Medicine; Internal Medicine Cardiovascular Disease
DX: I25.10 Atherosclerotic heart disease of native coronary artery without angina pectoris (principal); Z95.5 Presence of coronary angioplasty implant and graft; T82.855A Stenosis of coronary artery stent, initial encounter; Y83.8 Other surgical procedures as the cause of abnormal reaction of the patient, or of later complication, without mention of misadventure at the time of the procedure; E03.9 Hypothyroidism, unspecified; I08.0 Rheumatic disorders of both mitral and aortic valves; J45.909 Unspecified asthma, uncomplicated; K21.9 Gastro-esophageal reflux disease without esophagitis; E78.5 Hyperlipidemia, unspecified

== ENCOUNTER 2018-04-11 07:11 | Outpatient (CLI) | payer BC ==
[~2018-04-11] VITALS: Ht 165.1 cm; Wt 88.6 kg
--- NOTE | ~2018-04-11 | CN ---
PATIENT NAME:DEBBIE HOOKER MEDICAL RECORD: [id number] : 51 LOCATION:.[facility].2121 ADMIT DATE: ACCOUNT: [id number] CONSULTING PHYSICIAN: MARK WALLER MD REFERRING PHYSICIAN: MARK WALLER MD DATE OF CONSULTATION: 04/11/2018 Cardiology Consultation ADMITTING DIAGNOSES: 1. Unstable angina. 2. Coronary artery disease. 3. Previous percutaneous transluminal coronary angioplasty and stent. 4. Hyperlipidemia. HISTORY OF PRESENT ILLNESS: Ms. Hooker presents with increasing anginal symptomatology over the past few days but worse today, she has had multiple sublingual nitro today. The pain is coming back on her now, it is just like that of her previous coronary artery disease. She had cardiac intervention in January of last year and October of this year. PHYSICAL EXAMINATION: GENERAL APPEARANCE: Well nourished, well developed, appears stated age. Level of distress, comfortable. PSYCHIATRIC: Mental status, alert, normal affect. Orientation, oriented to time, place and person. EYES: Lids and conjunctivae, noninjected. No discharge, no pallor. ENT: Lips, teeth, gums, normal dentition. Oropharynx, no cyanosis, no pallor. NECK: Carotid arteries, bilateral normal upstroke, no bruits, no thrills. JUGULAR VEINS: No jugular venous pressure or distention. CERVICAL LYMPH NODES: Nontender, nonenlarged. THYROID: Not enlarged. Nontender. No nodules. LUNGS: Respiratory effort, unlabored. CHEST: Normal curvature. No thoracic deformity. No chest wall tenderness. Percussion, resonant. Auscultation, clear. No wheezes, no rales, no rhonchi. CARDIOVASCULAR: Precordial exam, nondisplaced. No heaves or pericardial thrills. Rate and rhythm, regular. Heart sounds, normal S1, normal S2. No S3, no gallop, no rub. Systolic murmur, not heard. Diastolic murmur, not heard. EXTREMITIES: No cyanosis, no edema. Peripheral pulses, full and equal in all extremities, except as noted. No bruits appreciated. ABDOMEN: Soft, nondistended. Normal aorta. No bruit. Nontender. No masses. Liver, nontender, no hepatomegaly. Spleen, nontender, no splenomegaly. MUSCULOSKELETAL: No joint tenderness. No joint swelling. No erythema. NEUROLOGICAL: Normal gait, normal strength, normal tone. SKIN: Warm and dry. OVERALL IMPRESSION: Unstable angina. We will proceed with coronary angiography. Further care will depend on the findings of the angiography. TRANSINT:[id number] Voice Confirmation ID: [id number] DOCUMENT ID: [id number] CONSULT REPORT [id number] DEBBIE HOOKER, MARK SI[facility] at 0752 CC: [id number] DICTATION DATE: 04/11/18907 MANAGER CREDIT COLLECTIONS: 04/11/18 09 [facility] [address] [place] [address]
--- NOTE | ~2018-04-11 | OP ---
PATIENT NAME: DEBBIE HOOKER MEDICAL RECORD: [id number] :51 LOCATION:D.CAT ADMISSION DATE: SURGEON: MARK WALLER MD DATE OF OPERATION: 04/12/2018 PROCEDURES: 1. PTCA stent RCA. 2. Selective coronary angiography. INDICATION: Angina and coronary artery disease. PROCEDURE IN DETAIL: After informed consent was obtained and after a detailed description of the risks, benefits as well as alternative therapies, the patient elected to proceed with angiogram and angioplasty. The left femoral area was prepped and draped in normal sterile fashion. Left femoral artery was cannulated via modified Seldinger technique with placement of 6-Bahamian sheath. All catheters exchanged through this sheath. FINDINGS: The right coronary artery has 80% stenosis in the mid vessel. This was addressed with a 3.0 x 12 mm Edy stent. Result was 0% residual stenosis. OVERALL IMPRESSION: Successful percutaneous transluminal coronary angioplasty stent of the right coronary artery going from 80% initial stenosis to 0% residual. TRANSINT:[id number] Voice Confirmation ID: [id number] DOCUMENT ID: [id number] MARK WALLER MD at 0924 CC: [id number] DICTATION DATE: 04/12/18 0752 ORIENTATION & MOBILITY SPECIALIST: 04/12/18 1045 DEP CLI 04/12/[address] [address]
--- NOTE | ~2018-04-11 | HEMODYNAMI ---
PATIENT:DEBBIE HOOKER MEDICAL RECORD: [id number] : 51 LOCATION:D.CAT ADMISSION DATE: 04/11/18 Generatedon:04/11/201810:33 Patient name: DEBBIE HOOKER Patient #: [id number] SSN: : 1955 Date of study: 04/11/2018 Page: Of Hemodynamic Procedure Report Patient Data Patient Demographics Procedure consent was obtained First Name: DEBBIE Gender: Female Last Name: MORRO : 1955 Middle Initial: GABBI Age: 62 year(s) Patient #: [id number] Race: Unknown Additional ID: [id number] Contact details [address]: [address] [place] [address] State: [place] City: [place] Zip code: [address] Past Medical History Allergies Allergen Reaction Date Comments Reported Sulfa drugs 04/11/2018 Admission Admission Data Admission Date: 04/11/2018 Admission Time: 7:11 Lab Results Lab Result Date: 04/11/2018 Lab Result Time: 0:00 Biochemistry Name Units Result Min Max BUN mg/dl 15 --(--*-)-- 7 18 Creatinine mg/dl 0.8 --(-*--)-- 0.6 1.3 CBC Name Units Result Min Max Hemoglobin g/dl 13 -*(----)-- 13.5 17.5 Procedure Procedure Types Cath Procedure Diagnostic Procedure [facility] w/Coronaries FFR/IVUS Intra-Coronary IVUS Initial PCI Procedure Coronary Stent Coronary Stent Initial Procedure Description Procedure Date Procedure Date: 04/11/2018 Procedure Start Time: 10:16 Procedure End Time: 10:33 Procedure Staff Name Function Rodney Tran MD Performing Physician Anais Johnson RT Monitor Quincy Faulkner RT Refrigerating Machine Operator Michael Burden RN Nurse Sabino Vanegas RT Scrub Procedure Data Cath Procedure Fluoroscopy Diagnostic fluoroscopy Total fluoroscopy Time: 2.1 time: 2.1 min min Diagnostic fluoroscopy Total fluoroscopy dose: 469 dose: 469 mGy mGy Contrast Material Contrast Material Type Amount (ml) Isovue 300 84 Entry Location Entry Primary Successful Side Size Upsize Upsize Entry Closure Succes sful Closure Location (Fr) 1 (Fr) 2 (Fr) Remarks Device Remarks Femoral Right 6 Fr Exoseal artery Short Estimated blood loss: 10 ml Diagnostic catheters Device Type Used For End Catheter Placement MULTIPACK Pigtail 5 Fr Procedure catheter MULTIPACK JL 4.0 5Fr Procedure catheter MULTIPACK 3DRC 5Fr Procedure catheter Procedure Complications No complications Procedure Medications Medication Administration Route Dosage Oxygen etCO2 Nasal cannula 2 l/min Heparin Flush Bag added to field 2 bags (1000units/500ml NS) 0.9% NaCl I.V. 100 ml/hr Fentanyl I.V. 50 mcg Versed I.V. 1 mg Fentanyl I.V. 50 mcg Versed I.V. 1 mg Fentanyl I.V. 50 mcg Fentanyl I.V. 50 mcg Heparin Bolus I.V. 4000 units Hemodynamics Rest HGB: 13 (g/dl) Heart Rate: 80 (bpm) Snapshots Pre Cath Intra NCS Post Cath Vital Signs Time Heart Resp SPO2 etCO2 NIBP (mmHg) Rhythm Pain Sedation Rate (ipm) (%) (mmHg) Status Level (bpm) 9:57:06 80 16 98 40.3 167/81(124) NSR 0 (11) 10(A) , No pain 10:01:38 78 17 100 39.6 163/79(113) NSR 0 (11) 10(A) , No pain 10:06:10 83 16 100 39.6 160/76(110) NSR 0 (11) 10(A) , No pain 10:10:41 82 16 100 36.5 167/80(109) NSR 0 (11) 10(A) , No pain 10:15:09 83 17 99 37.3 168/83(129) NSR 0 (11) 9(A) , No pain 10:19:43 88 17 97 0 152/73(115) NSR 0 (11) 9(A) , No pain 10:25:11 92 17 95 50.7 181/104(131) NSR 0 (11) 9(A) , No pain 10:29:43 94 17 98 0 174/91(105) NSR 0 (11) 9(A) , No pain Medications Time Medication Route Dose Verified Delivered Reason Notes Effectiveness by by 10:11:33 Oxygen etCO2 2 Rodneymarley Morochoy Per physician Nasal l/min Marc Burden RN cannula 10:11:40 Heparin Flush added 2 Rodney Rodriguez used for Bag to bags Marc Burden RN procedure (1000units/500ml field NS) 10:12:10 0.9% NaCl I.V. 100 Rodney Morochoy Per physician ml/hr Marc Burden RN 10:12:29 Fentanyl I.V. 50 Rodney [place]ochoy for sedation mcg Marc Burden RN 10:12:36 Versed I.V. 1 mg Rodney Michael for sedation Marc Burden RN 10:16:02 Fentanyl I.V. 50 Rodney Michael for sedation mcg Marc Burden RN 10:16:07 Versed I.V. 1 mg Rodney Michael for sedation Marc Burden RN 10:18:14 Fentanyl I.V. 50 Rodney Michael for sedation mcg Marc Burden RN 10:24:19 Fentanyl I.V. 50 Rodney Michael for sedation mcg Marc Burden RN 10:24:32 Heparin Bolus I.V. 4000 Rodney Michael for units Marc Burden RN anticoagulation Procedure Log Time Note 9:28:58 Sabino Vanegas RT(R) sent for patient. Start room use. 9::59 Time tracking: Regular hours (M-F 7:00 - 5:00) 9:29:03 Plan of Care:Hemodynamics will remain stable., Cardiac rhythm will remain stable., Comfort level will be maintained., Respiratory function will remain adequate., Patient/ family verbilizes understanding of procedure., Procedure tolerated without complication., Recovers from procedure without complications.. 9:36:38 Signed procedure consent form obtained from patient. 9:39:25 Patient allergic to Sulfa drugs 9:39:49 Lab Result : BUN 15 mg/dl 9:39:49 Lab Result : Creatinine 0.8 mg/dl 9:39:49 Lab Result : Hemoglobin 13 g/dl 9:49:58 Patient received from ED to CCL 1 Alert and oriented. Tansferred to table in Supine position. 9:49:59 Warm blankets applied, and mitch hugger turned on for patient comfort. 9:49:59 Correct patient and procedure confirmed by team. 9:50:00 ECG and BP/O2 sat monitors applied to patient. 9:55:14 Is the patient allergic to Iodine/contrast media? No. 9:55:16 Is patient on blood thinner?Yes 9:55:18 ACC The patient was administered the following blood thiners within the last 24 hours: ACCPlavix 9:55:20 Patient diabetic? No. 9:55:23 Previous problem with sedation/anesthesia? No ? 9:55:25 Snore? Yes 9:55:26 Sleep apnea? No 9:55:27 Deviated septum? No 9:55:28 Opens mouth fully? Yes 9:55:29 Sticks out tongue? Yes 9:55:33 Airway obstruction? Yes Asthma 9:55:37 Dentures? No ? 9:55:42 Vital chart was started 9:55:44 Baseline sample Acquired. 9:55:47 Rhythm: sinus rhythm 9:55:49 Full Disclosure recording started 9:55:56 H&P Date Dictated: 04/11/2018 Emergent; H&P N/A. 9:55:58 Pre-procedure instructions explained to patient. 9:55:59 Pre-op teaching completed and patient verbalized understanding. 9:56:02 Family in waiting room. 9:56:04 Patient NPO since Midnight. 9:57:44 Patient pain scale 0/10 ?. 9:57:55 IV patent on arrival in right forearm with 0.9% NaCl at KVO. 9:57:57 Lab results completed and on chart. 9:58:00 Right groin area was prepped with chlora-prep and draped in sterile fashion 9:58:07 Use device set Femoral Dx 9:58:09 ACIST Syringe (30950) opened to sterile field. 9:58:10 Bag Decanter () opened to sterile field. 9:58:11 ACIST Hand Control (64171) opened to sterile field. 9:58:12 ACIST Manifold (11489) opened to sterile field. 9:58:13 Tegaderm 4 x 4 (1626W) opened to sterile field. 9:58:14 Medline Cath Pack ([id number]) opened to sterile field. 9:58:14 DIAGNOSTIC WIRE .035 260cm J wire (087560) opened to sterile field. 9:58:15 DIAGNOSTIC Multipack 5Fr catheter set (DS4279) opened to sterile field. 10::38 --------ALL STOP TIME OUT------ 10::39 Final Timeout: patient, procedure, and site verified with staff and physician. All members of the team are in agreement. 10::41 Right groin site verified by team. 10::43 Physical assessment completed. ASA score P 2 - A patient with mild systemic disease as per Rodney Tran MD. 10::47 Sedation plan: IV Moderate Sedation Medication:Versed, Fentanyl 10::33 Zero performed for pressure channel P1 10:11:33 Oxygen 2 l/min etCO2 Nasal cannula was administered by Michael Burden RN; Per physician; 10:11:40 Heparin Flush Bag (1000units/500ml NS) 2 bags added to field was administered by Michael Burden RN; used for procedure; 10:12:10 0.9% NaCl 100 ml/hr I.V. was administered by Michael Burden RN; Per physician; 10:12:29 Fentanyl 50 mcg I.V. was administered by Michael Burden RN; for sedation; 10:12:36 Versed 1 mg I.V. was administered by Michael Burden RN; for sedation; 10::41 SHEATH 6FR [place] (FDM186) opened to sterile field. ::47 Zero performed for pressure channel P1 10:16:02 Fentanyl 50 mcg I.V. was administered by Michael Burden RN; for sedation; 10:16:07 Versed 1 mg I.V. was administered by Michael Burden RN; for sedation; 10:16:08 Zero performed for pressure channel P1 10:16:22 Procedure started. 10:16:32 Local anesthetic to right femoral artery with Lidocaine 2% by Rodney Tran MD.INITIAL ACCESS ONLY 10:16:55 A 6 Fr Short sheath was inserted into the Right Femoral artery 10:17:29 A MULTIPACK Pigtail 5 Fr catheter was advanced over the wire and used for Procedure. 10:17:50 LV gram done using SARAVIA 10:17:53 Injector settings: Ml/sec: 102, Volume: 0, 10:18:14 Fentanyl 50 mcg I.V. was administered by Michael Burden RN; for sedation; 10:18:17 EF : 60 % 10:18:18 Catheter removed. 10:18:22 A MULTIPACK JL 4.0 5Fr catheter was advanced over the wire and used for Procedure. 10:19:44 LCA angiography performed. 10:19:46 Catheter removed. 10:20:01 A MULTIPACK 3DRC 5Fr catheter was advanced over the wire and used for Procedure. 10:20:41 RCA angiography performed. 10:20:43 Catheter removed. 10:20:51 INFLATOR Merit BasixCompak (RX8767) opened to sterile field. 10:21:02 CHOICE PT Extra Support 182cm wire ([id number]) opened to sterile field. 10:21:07 [place] IVUS Catheter (90011H) opened to sterile field. 10:21:29 GUIDE 6FR XBLAD 3.5 catheter ([id number]) opened to sterile field. 10:21:36 6 Fr xblad 3.5 guide catheter was inserted over the wire 10:21:44 choice es 182 wire advanced. 10:22:08 Wire advanced across lesion. 10:23:16 IVUS catheter advanced over wire. 10:23:18 IVUS pass to LAD lesion performed. 10:23:18 IVUS catheter removed over wire. 10:24:19 Fentanyl 50 mcg I.V. was administered by Michael Burden RN; for sedation; 10:24:32 Heparin Bolus 4000 units I.V. was administered by Michael Burden RN; for anticoagulation; 10:26:05 Place stent Inflation Number: 1 A JENNIFER RX 3.5 x 12 stent ([id number]) was prepped and advanced across the Prox LAD. The stent was deployed at 15 TAMERA for 0:10 (min:sec). 10:26:35 Stent catheter was removed intact over wire. 10:26:36 Wire removed. 10:26:36 Guide catheter removed. 10:26:50 EXOSEAL 6Fr (EX600) opened to sterile field. 10:27:28 Sheath removed intact; hemostasis achieved with Exoseal to the Right Femoral artery. 10:27:30 Procedure ended.(Physican Out) 10:29:47 Fluoroscopy time 02.10 minutes. 10:29:50 Fluoroscopy dose: 469 mGy 10:29:50 Flurop Dose total: 469 10:29:54 Contrast amount:Isovue 300 84ml. 10:29:55 Sharps counted by scrub and verified by R.N. 10:29:58 Post-op/insertion site Right Femoral artery dressed using a 4 x 4 and Tegaderm. 10:30:00 Post-procedure physical assessment completed. ASA score P 2 - A patient with mild systemic disease as per Rodney Tran MD. 10:30:05 Post procedure rhythm: sinus rhythm 10:30:07 Estimated blood loss: 10 ml 10:30:08 Post procedure instruction explained to patient.Patient verbalizes understanding. 10:30:08 Patient needs reinforcement of post procedure teaching. 10:30:34 Procedure type changed to Cath procedure, Diagnostic procedure, LHC, LHC w/Coronaries, FFR/IVUS, Intra-Coronary IVUS Initial, PCI procedure, Coronary Stent, Coronary Stent Initial 10:32:12 Procedure and supply charges have been captured, reviewed, submitted and are correct. 10:32:17 Procedure Complication : No complications 10:32:19 Vital chart was stopped 10:32:20 See physician's report for complete and final results. 10:33:03 Report given to Pre/Post Procedure Room. 10:33:09 Patient transfered to Pre/Post Procedure Room with Bed. 10:33:11 Procedure ended. 10:33:11 Full Disclosure recording stopped 10:33:14 End room use (Document Last) Intervention Summary Intervention Notes Time ActionType Lesion and Equipment Used Action# Pressure Duration Attributes 10:26:[address] Place stent Prox LAD JENNIFER RX 3.5 x 1 15 00:10 12 stent ([id number]) Device Usage Item Name Manufacture Quantity Catalog Number Hospital Part Current M inimal Lot# / Charge Number Stock Stock Serial# Code ACIST Syringe Acist 1 96553 [id number] 783592 121899 2 0 (40874) Medical Systems Inc Bag Decanter Microtek 1 2001S 482427 65699 702597 5 (2001S) Medical Inc. ACIST Hand Acist 1 22730 151659 228354 960795 5 Control Medical (46696) Systems Inc ACIST Manifold Acist 1 51242 256256 125816 896731 5 (33714) Medical Systems Inc Tegaderm 4 x 4 3M 1 1626W 323097 230425 715667 5 (1626W) Medline Cath Cardinal 1 [id number] 517944 79856 854431 5 Pack Health ([id number]) DIAGNOSTIC St [place] 1 452430 879493 351139 949066 3 0 WIRE .035 260cm J wire (584558) DIAGNOSTIC Cardinal 1 RG2393 653568 95221 943041 3 0 Multipack 5Fr Health catheter set ([id number]) SHEATH 6FR Terumo 1 XUL163 683666 351220 618772 4 0 [place] (BMX638) MULTIPACK Cardinal 1 833458 5 Pigtail 5 Fr Health catheter MULTIPACK JL Cardinal 1 826779 5 4.0 5Fr Health catheter MULTIPACK 3DRC Cardinal 1 573075 5 5Fr catheter Health INFLATOR Merit Merit 1 TL1265 003277 780826 028426 1 5 Experience Headphones (TL3485) CHOICE PT Corder 1 [id number] 906709 991265 174885 5 Extra Support Scientific 182cm wire ([id number]) [place] 1 28237O 823931 314610 853917 8 [place] IVUS Catheter (71761G) GUIDE 6FR Cardinal 1 [id number] 075259 690880 973186 1 0 XBLAD 3.5 Health catheter ([id number]) JENNIFER RX 3.5 x Medtronic 1 [id number] 245685 3203032 317524 5 [id number] 12 stent ([id number]) EXOSEAL 6Fr Cardinal 1 EX600 490527 029227 795823 1 0 (EX600) Health Signature Audit [place] Stage Time Signature Unsigned Intra-Procedure 04/11/2018 Anais Johnson 10:33:54 AM RT(R) Signatures Monitor : Anais Johnson Signature : RT Date : Time : [place] [id number] [place] [address]
--- NOTE | ~2018-04-11 | OP ---
PATIENT NAME: DEBBIE HOOKER MEDICAL RECORD: [id number] :51 LOCATION:D.CAT ADMISSION DATE: SURGEON: MARK WALLER MD DATE OF OPERATION: 04/11/2018 PROCEDURES: 1. PTCA stent LAD. 2. Intravascular ultrasound. 3. Left heart catheterization. 4. Selective coronary angiography. 5. Left ventriculogram. INDICATION: Angina and coronary artery disease. PROCEDURE IN DETAIL: After informed consent was obtained and after a detailed description of the risks, benefits as well as alternative therapies, the patient elected to proceed with angiogram and angioplasty. The right femoral area was prepped and draped in a sterile fashion. Right femoral artery was cannulated via modified Seldinger technique with placement of 6-[place] sheath. All catheters exchanged through this sheath. FINDINGS: Left ventriculogram was performed in standard 30-degree SARAVIA view, reveals good cardiac wall motion throughout all segments. Overall ejection fraction estimated 60%. SELECTIVE CORONARY ANGIOGRAPHY: 1. Left main is with no significant angiographic disease. 2. Left anterior descending has a previously placed stent that is widely patent; however, intravascular ultrasound reveals there is 65% to 70% stenosis proximal to the previously placed stent. 3. Left circumflex has moderate irregularities, but no flow-limiting stenosis. 4. Right coronary artery has a 75% stenosis in the mid vessel. PTCA STENT OF THE LAD: The stent used was a 3.5 x 12 mm Edy. Result was 0% residual stenosis. OVERALL IMPRESSION: Successful PTCA stent of the LAD going from 70% initial stenosis to 0% residual. PLAN: PTCA stent of the RCA in the near future. TRANSINT:[id number] Voice Confirmation ID: [id number] DOCUMENT ID: [id number] MARK WALLER MD at 0924 CC: [id number] DICTATION DATE: 04/11/18 1032 AUTOMATIC DOOR MECHANIC: 04/11/18 1118 DEP CLI 04/12/[address] [address]
--- NOTE | ~2018-04-11 | HEMODYNAMI ---
PATIENT:DEBBIE HOOKER MEDICAL RECORD: [id number] : 51 LOCATION:[facility] D.2121 ADMISSION DATE: 04/11/18 Generatedon:04/12/20187:54 Patient name: DEBBIE HOOKER Patient #: [id number] SSN: : 1955 Date of study: 04/12/2018 Page: Of Hemodynamic Procedure Report Patient Data Patient Demographics Procedure consent was obtained First Name: DEBBIE Gender: Female Last Name: MORRO : 1955 [facility] Initial: GABBI Age: 62 year(s) Patient #: [id number] Race: Unknown Additional ID: [id number] Contact details [address]: [address] [place] [address] State: [place] City: [place] Zip code: [address] Past Medical History Allergies Allergen Reaction Date Comments Reported Sulfa drugs 04/11/2018 Admission Admission Data Admission Date: 04/11/2018 Admission Time: 7:11 Admit Source: Other Room #: [facility] Lab Results Lab Result Date: 04/11/2018 Lab Result Time: 0:00 Biochemistry Name Units Result Min Max BUN mg/dl 15 --(--*-)-- 7 18 Creatinine mg/dl 0.8 --(-*--)-- 0.6 1.3 CBC Name Units Result Min Max Hemoglobin g/dl 13 -*(----)-- 13.5 17.5 Procedure Procedure Types Cath Procedure PCI Procedure Coronary Stent Coronary Stent Initial Procedure Description Procedure Date Procedure Date: 04/12/2018 Procedure Start Time: 7:43 Procedure End Time: 7:50 Procedure Staff Name Function Rodney Tran MD Performing Physician Riya King RT Monitor Quincy Faulkner RT Scrub Michael Manzano RN Nurse Procedure Data Cath Procedure Fluoroscopy Diagnostic fluoroscopy Total fluoroscopy Time: 1.2 time: 1.2 min min Diagnostic fluoroscopy Total fluoroscopy dose: 98 dose: 98 mGy mGy Contrast Material Contrast Material Type Amount (ml) Isovue 300 38 Entry Location Entry Primary Successful Side Size Upsize Upsize Entry Closure Succes sful Closure Location (Fr) 1 (Fr) 2 (Fr) Remarks Device Remarks Femoral Left 6 Fr Exoseal artery Short Estimated blood loss: 5 ml Procedure Complications No complications Procedure Medications Medication Administration Route Dosage 0.9% NaCl I.V. 100 ml/hr Oxygen etCO2 Nasal cannula 2 l/min Lidocaine 2% added to field 20 Heparin Flush Bag added to field 2 bags (1000units/500ml NS) Benadryl I.V. 50 mg Plavix P.O. 75 mg Versed I.V. 2 mg Fentanyl I.V. 100 mcg Heparin Bolus I.V. 4000 units Versed I.V. 1 mg Fentanyl I.V. 100 mcg Hemodynamics Rest HGB: 13 (g/dl) Heart Rate: 82 (bpm) Snapshots Pre Cath Intra NCS Post Cath Vital Signs Time Heart Resp SPO2 etCO2 NIBP (mmHg) Rhythm Pain Sedation Rate (ipm) (%) (mmHg) Status Level (bpm) 7:17:31 80 13 98 42 161/74(104) NSR 0 (11) 10(A) , No pain 7:22:04 80 14 99 42.4 160/83(113) NSR 0 (11) 10(A) , No pain 7:26:34 74 12 100 36.5 150/84(111) NSR 0 (11) 10(A) , No pain 7:31:01 81 14 100 40.2 148/84(112) NSR 0 (11) 10(A) , No pain 7:36:41 73 15 98 31.2 157/84(135) NSR 0 (11) 10(A) , No pain 7:41:05 76 12 98 41 156/79(115) NSR 0 (11) 10(A) , No pain 7:45:29 80 14 99 39.4 134/80(125) NSR 0 (11) 9(A) , No pain 7:49:43 89 15 98 30.5 149/96(126) NSR 0 (11) 9(A) , No pain 7:54:11 85 14 98 37.2 153/88(117) NSR 0 (11) 10(A) , No pain Medications Time Medication Route Dose Verified Delivered Reason Notes Effectiveness by by 7:16:09 0.9% NaCl I.V. 100 Rodney Buffie ml/hr Marc Manzano RN 7:16:18 Oxygen etCO2 2 Rodney Buffie used for Nasal l/min Marc Manzano RN procedure cannula 7:16:24 Lidocaine 2% added 20ml Rodney Rodney for local to vial Marc Tran MD anesthetic field 7:16:30 Heparin Flush added 2 Rodney Rodney used for Bag to bags Marc Tran MD procedure (1000units/500ml field NS) 7:18:28 Benadryl I.V. 50 mg Rodney Stevens Per physician Marc Tran MD 7:22:53 Plavix P.O. 75 mg Rodney Stevens for Marc Tran MD antiplatelet therapy 7:42:06 Versed I.V. 2 mg Rodney Korinie for sedation Marc Manzano RN 7:42:12 Fentanyl I.V. 100 Rodney Buffie for sedation mcg Marc Manzano RN 7:44:45 Heparin Bolus I.V. 4000 Rodney Buffie for verifi ed units Marc Manzano RN anticoagulation with dr tran 7:46:16 Versed I.V. 1 mg Rodneymarley Langleyie for sedation Marc Manzano RN 7:46:20 Fentanyl I.V. 100 Rodneymarley Langleyie for sedation mcg Marc Manzano RN Procedure Log Time Note 6:48:13 Quincy Tamezit RT(R) sent for patient. Start room use. 6:48:20 Admit Source: Other 6:48:51 ACC Patient presents with Stable Angina CCS Anginal Class 2--Slight limitation of ordinary activity. 6:48:56 Diagnostic Cath status Elective 7:15:44 Patient received from PCU to CCL 1 Alert and oriented. Tansferred to table in Supine position. 7:15:46 Warm blankets applied, and mitch hugger turned on for patient comfort. 7:15:46 Correct patient and procedure confirmed by team. 7:15:47 Signed procedure consent form obtained from patient. 7:15:49 ECG and BP/O2 sat monitors applied to patient. 7:16:03 Vital chart was started 7:16:04 Baseline sample Acquired. 7:16:07 Rhythm: sinus rhythm 7:16:09 0.9% NaCl 100 ml/hr I.V. was administered by Buffie Manzano RN; ; 7:16:09 Full Disclosure recording started 7:16:14 H&P Date Dictated: 04/12/2018 Within 30 days and on chart.. 7:16:18 Oxygen 2 l/min etCO2 Nasal cannula was administered by Michael Manzano RN; used for procedure; 7:16:18 Pre-procedure instructions explained to patient. 7:16:19 Pre-op teaching completed and patient verbalized understanding. 7:16:21 Family in patients room. 7:16:22 Patient NPO since Midnight. 7:16:24 Lidocaine 2% 20ml vial added to field was administered by Rodney Tran MD; for local anesthetic; 7:16:30 Heparin Flush Bag (1000units/500ml NS) 2 bags added to field was administered by Rodney Tran MD; used for procedure; 7:18:28 Benadryl 50 mg I.V. was administered by Rodney Tran MD; Per physician; 7:18:50 Is the patient allergic to Iodine/contrast media? No. 7:18:51 Was the patient premedicated? No 7:20:10 Is patient on blood thinner?Yes 7:20:13 ACC The patient was administered the following blood thiners within the last 24 hours: ACCPlavix 7:20:15 Patient diabetic? No. 7:20:16 Previous problem with sedation/anesthesia? No ? 7:20:18 Snore? Yes 7:20:20 Sleep apnea? No 7:20:21 Deviated septum? No 7:20:23 Opens mouth fully? Yes 7:20:25 Sticks out tongue? Yes 7:20:30 Airway obstruction? Yes ASTHMA 7:20:34 Dentures? No ? 7:20:38 Pre procedure: right dorsailis pedis pulse 2+ Normal; easily identifiable; not easily obliterated 7:20:40 Pre procedure: left dorsailis pedis pulse 2+ Normal; easily identifiable; not easily obliterated 7:20:44 Patient pain scale 0/10 ?. 7:20:59 IV patent on arrival in left forearm with 0.9% NaCl at [facility]. 7:21:02 Lab results completed and on chart. 7:21:08 Right groin area was prepped with chlora-prep and draped in sterile fashion 7:21:09 Alarms reviewed by Guy Kidd 7:21:09 Sharps counted by scrub and verified by R.N. 7:22:53 Plavix 75 mg P.O. was administered by Rodney Tran MD; for antiplatelet therapy; 7:30:19 Zero performed for pressure channel P1 7:30:34 Physician paged 7:41:40 Physician arrived 7:41:41 --------ALL STOP TIME OUT------ 7:41:42 Final Timeout: patient, procedure, and site verified with staff and physician. All members of the team are in agreement. 7:41:44 Left groin site verified by team. 7:41:46 Physical assessment completed. ASA score P 2 - A patient with mild systemic disease as per Rodney Tran MD. 7:41:50 Sedation plan: IV Moderate Sedation Medication:Versed, Fentanyl 7:42:06 Versed 2 mg I.V. was administered by Michael Manzano RN; for sedation; 7:42:12 Fentanyl 100 mcg I.V. was administered by Michael Manzano RN; for sedation; 7:42:58 Procedure started. 7:43:07 Use device set Femoral Dx 7:43:09 ACIST Syringe (55718) opened to sterile field. 7:43:10 Bag Decanter () opened to sterile field. 7:43:11 Medline Cath Pack ([id number]) opened to sterile field. 7:43:11 DIAGNOSTIC WIRE .035 260cm J wire (255438) opened to sterile field. 7:43:13 ACIST Hand Control (26140) opened to sterile field. 7:43:14 ACIST Manifold (60184) opened to sterile field. 7:43:16 Tegaderm 4 x 4 (1626W) opened to sterile field. 7:43:41 GUIDE 6FR HS II SH catheter ([id number]) opened to sterile field. 7:43:42 CHOICE PT Extra Support 182cm wire ([id number]) opened to sterile field. 7:43:43 INFLATOR Merit BasixCompak (IH2904) opened to sterile field. 7:43:44 SHEATH Prelude 6Fr 0.035 (KJS-6S-21-035) opened to sterile field. 7:43:51 Local anesthetic to left femerol artery with Lidocaine 2% by Rodney Tran MD.INITIAL ACCESS ONLY 7:44:01 A 6 Fr Short sheath was inserted into the Left Femoral artery 7:44:13 6 Fr HS 2 SH guide catheter was inserted over the wire 7:44:28 CHOICE PT wire advanced. 7:44:45 Heparin Bolus 4000 units I.V. was administered by Michael Manzano RN; for anticoagulation; verified with dr tran 7:46:06 Wire advanced across lesion. 7:46:16 Versed 1 mg I.V. was administered by Michael Manzano RN; for sedation; 7:46:20 Fentanyl 100 mcg I.V. was administered by Michael Manzano RN; for sedation; 7:46:57 Place stent Inflation Number: 1 A JENNIFER RX 3.0 x 12 stent ([id number]) was prepped and advanced across the Mid RCA. The stent was deployed at 13 TAMERA for 0:10 (min:sec). 7:48:00 Stent catheter was removed intact over wire. 7:48:01 Wire removed. 7:48:02 Guide catheter removed. 7:48:09 EXOSEAL 6Fr (EX600) opened to sterile field. 7:48:33 Sheath removed intact; hemostasis achieved with Exoseal to the Left Femoral artery. 7:48:35 Procedure ended.(Physican Out) 7:49:08 Fluoroscopy time 01.20 minutes. 7:49:14 Flurop Dose total: 98 7:49:14 Fluoroscopy dose: 98 mGy 7:49:18 Contrast amount:Isovue 300 38ml. 7:49:20 Sharps counted by scrub and verified by R.N. 7:49:22 Insertion/operative site no bleeding no hematoma. 7:49:26 Post-op/insertion site Left Femoral artery dressed using a 4 x 4 and Tegaderm. 7:49:30 Post left femerol artery:stable 7:49:31 Post Procedure Pulses reassessed and unchanged 7:49:35 Post procedure rhythm: unchanged. 7:49:39 Estimated blood loss: 5 ml 7:49:41 Post procedure instruction explained to patient.Patient verbalizes understanding. 7:49:41 Patient needs reinforcement of post procedure teaching. 7:50:14 Procedure and supply charges have been captured, reviewed, submitted and are correct. 7:50:19 Procedure Complication : No complications 7:50:22 Vital chart was stopped 7:50:22 See physician's report for complete and final results. 7:50:25 Report given to [facility]. 7:50:29 Patient transfered to [facility] with Stretcher. 7:50:31 Procedure ended. 7:50:31 Full Disclosure recording stopped 7:50:37 ACC-PCI Only Patient was given prescriptions, or instructed by Rodney Tran MD to start/continue the following medications upon discharge: Plavix 7:50:39 End room use (Document Last) Intervention Summary Intervention Notes Time ActionType Lesion and Equipment Used Action# Pressure Duration Attributes 7:46:57 Place stent Mid RCA JENNIFER RX 3.0 x 1 13 00:10 12 stent ([id number]) Device Usage Item Name Manufacture Quantity Catalog Number Hospital Part Current Minimal Lot# / Charge Number Stock Stock Serial# Code ACIST Syringe Acist 1 92818 [id number] 438915 [id number] 20 (52093) [employer] Bag Decanter Microtek 1 2001S 007466 70894 768154 5 (2001S) Medical Inc. Medline Cath Cardinal 1 [id number] 773142 82289 886208 5 [facility] ([id number]) DIAGNOSTIC WIRE St [place] 1 877208 792733 334288 006205 30 .035 260cm J wire (115178) ACIST Hand Acist 1 81897 309140 521036 179984 5 Control (76171) [employer] ACIST Manifold Acist 1 76451 914876 768664 503982 5 (27124) [employer] Inc Tegaderm 4 x 4 3M 1 1626W 252216 220164 193340 5 (1626W) GUIDE 6FR HS II Medtronic 1 [id number] 395070 67787 233817 1 SH catheter ([id number]) CHOICE PT Extra [place] 1 [id number] 587041 417647 762119 5 Support 182cm Scientific wire ([id number]) INFLATOR Merit Merit 1 CJ2198 294527 706678 045291 15 [employer] (HZ2654) SHEATH Prelude Merit 1 [id number]-8U-[id number] 557759 3670843 332458 5 6Fr 0.035 Medical (TBE-8P-45-035) JENNIFER RX 3.0 x Medtronic 1 [id number] 016568 0239421 888752 5 [id number] 12 stent ([id number]) EXOSEAL 6Fr Cardinal 1 EX600 628600 391466 991907 10 (EX600) Health Signature Audit [place] Stage Time Signature Unsigned Intra-Procedure 04/12/2018 Riya King 7:54:54 AM RT(R) Signatures Monitor : Riya King RT Signature : Date : Time : [facility] [address] [place] [address]
--- NOTE | ~2018-04-11 | DS ---
PATIENT:DEBBIE HOOKER :51 MEDICAL RECORD: [id number] DISCHARGE SUMMARY ADMISSION DATE: 04/11/18 DISCHARGE DATE: 04/12/18 DATE OF DISCHARGE: 04/12/2018 DISCHARGE DIAGNOSES: 1. Unstable angina. 2. Coronary artery disease. 3. Percutaneous transluminal coronary angioplasty stent right coronary artery and left anterior descending this admission. 4. Hypertension. 5. Hyperlipidemia. HOSPITAL COURSE: Mrs. Hooker presents with unstable anginal symptomatology, found to have significant disease of the RCA and LAD, underwent successful PTCA stent of both territories, was discharged home with the addition of aspirin and Plavix to her medical regimen. Follow up with [facility] in 1 month. TRANSINT:[id number] Voice Confirmation ID: [id number] DOCUMENT ID: [id number] MARK WALLER MD at 0924 CC: [id number] DICTATION DATE: 04/12/18 075 GROUNDS KEEPER: 04/12/182036 DEP CLI 04/12/18 [id number] [place] [address]
[~2018-04-11 07:11] MED LIST changes: +BAYER CHEWABLE81 MG PO; +BREO ELLIPTA 11 EACH INH; +CLARITIN 10 MG10 MG PO; +PROTONIX20 MG PO
[2018-04-11] MEDS ORDERED: FUROSEMIDE20 MG PO (07:29)
[2018-04-11] MEDS ORDERED: PRAVACHOL20 MG PO (07:29)
[2018-04-11] MEDS ORDERED: ZANTAC300 MG PO (07:29)
[2018-04-11 08:13] LABS: BASOPHILS 0.7 % (0-2); EOSINOPHILS 4.9 % (0-7); HEMATOCRIT 38.8 % (36.0-48.0); IMMATURE GRANULOCYTES 0.1 % (0-5); LYMPHOCYTES 34.8 % (15-50); MCH 29.5 pg (26.0-34.0); MCHC 33.5 g/dL (31.0-37.0); MEAN PLATELET VOLUME 10.6 fL (7.4-10.4); MONOCYTES 7.7 % (2-11); NEUTROPHILS 51.8 % (40-80); PLATELET COUNT 285 10x3/uL (130-400); RBC 4.41 10x6/uL (4.00-5.40); RDW 13.4 % (11.5-14.5); WBC 7.3 10x3/uL (4.8-10.8)
[2018-04-11 08:34] LABS: ALBUMIN 3.8 g/dL (3.4-5.0); ALKALINE PHOSPHATASE 115 U/L (46-116); ALT (SGPT) 28 U/L (10-68); APTT 24.5 SECONDS (22.8-39.4); CALC OSMOLALITY 283 mosm/kg (275-300); CALCIUM 9.3 mg/dL (8.5-10.1); CARBON DIOXIDE 26.4 mmol/L (21.0-32.0); CHLORIDE - SERUM 105 mmol/L (98-107); CREATININE - SERUM 0.8 mg/dL (0.6-1.3); GLUCOSE 106 mg/dL (74-106); POTASSIUM - SERUM 4.4 mmol/L (3.5-5.1); PROTEIN - SERUM 6.6 g/dL (6.4-8.2); PROTIME 11.8 SECONDS (11.6-15.0); SODIUM 142 mmol/L (136-145); UREA NITROGEN 15 mg/dL (7-18); eGFR NON AFRICAN AMERICAN 76 mL/min (90-120)
[2018-04-11 08:35] LABS: D-DIMER-QUANTITATIVE < 0.27 ug/mLFEU (0.20-0.54)
[2018-04-11 08:45] LABS: CKMB 0.4 U/L (0.0-3.6); CREATINE KINASE 35 UL (21-215); MAGNESIUM - SERUM 1.8 mg/dL (1.8-2.4)
[2018-04-11 08:50] LABS: TROPONIN-I < 0.017 ng/mL (0.000-0.060)
[2018-04-11 11:40] VITALS: BP 154/77
[2018-04-11 12:39] VITALS: BP 154/77; Ht 165.1 cm; Wt 88.6 kg
[2018-04-11 16:11] VITALS: BP 141/64
[2018-04-11 20:21] VITALS: BP 126/56
[2018-04-12] VITALS: BP 129/58
[2018-04-12 04:00] VITALS: BP 128/65
== END 2018-04-12 12:52 | disposition home or self-care (01) ==
LOC: D.ER 07:11 → D.M2 07:11 → D.CATH 07:11 → EDSTATUS 09:48 → D.M2 10:41 → D.CATH 04-12 12:52
PROVIDERS: Emergency Medicine
DX: I25.110 Atherosclerotic heart disease of native coronary artery with unstable angina pectoris (principal); Z95.5 Presence of coronary angioplasty implant and graft; E78.5 Hyperlipidemia, unspecified; Z01.812 Encounter for preprocedural laboratory examination

== ENCOUNTER 2019-01-19 08:00 | Outpatient (CLI) | payer BC ==
[2018-04-11 12:39] VITALS: BMI 32.5
[~2019-01-19 08:00] MED LIST changes: +FUROSEMIDE20 MG PO; +PRAVACHOL20 MG PO; +ZANTAC300 MG PO
== END 2019-01-19 23:59 | disposition home or self-care (01) ==
LOC: D.MAMMO 08:00
PROVIDERS: ATTEND Family Medicine
DX: Z12.31 Encounter for screening mammogram for malignant neoplasm of breast (principal)